=== PATIENT | male | born 1950 | race Caucasian/White ===

== ENCOUNTER 2019-08-30 18:14 | Observation (INO) | payer OTHER ==
[2019-08-30] MEDS ORDERED: Meropenem 0 MG/0 ML BAG ONE (18:55)
[2019-08-30] MEDS ORDERED: Meropenem 1 GM/100 ML BAG ONE (18:56)
[2019-08-30] MEDS ORDERED: NA CHLORIDE 0.9% 1,000 ML ONE (18:57)
[2019-08-30] MEDS ORDERED: CEFOXITIN/SWI 1gm 1 GM/10 ML SYR ONE (19:31)
[2019-08-30 19:40] LABS: Absolute Lymphocytes (CBC) 0.5 K/uL (0.7-4.9); Basophils % 0.3 % (0-1.3); Hematocrit 38.5 % (39.6-49.0); Lymphocytes % 6.1 % (15.3-44.8); MPV 7.8 fL (7.6-11.3); RBC Red Blood Cell Count 4.55 M/uL (4.33-5.43)
[2019-08-30 19:53] LABS: Potassium 3.8 mmol/L (3.5-5.1)
--- NOTE | 2019-08-30 20:17 | EDPHYS ---
Physician Documentation [facility] Name: Berny Mccormick Age: 68 yrs Sex: Male : 1950 Arrival Date: 08/30/2019 Time: 18:16 Bed 17 Private MD: ED Physician HPI: 08/30 19:16 This 68 yrs old Male presents to ER via Ambulatory with complaints of Urinary jr8 Problem. 19:16 The patient presents with urinary symptoms, dysuria, urinary frequency. Onset: The jr8 symptoms/episode began/occurred gradually, 2 day(s) ago. Modifying factors: The symptoms are alleviated by nothing, the symptoms are aggravated by urinating. Associated signs and symptoms: The patient has no apparent associated signs or symptoms. Severity of symptoms: At their worst the symptoms were mild, in the emergency department the symptoms are unchanged. The patient has not experienced similar symptoms in the past. The patient has been recently seen by a physician:. Patient was seen by PCP for urinary symptoms and was started on cipro. Still without improvement. Culture was obtained and came back today. Cipro not sensitive. Patient stated that he has had mild low back pain and just overall does not feel well. No fevers, n/v/d, or abdominal pain. Historical: - Allergies: 18:34 No Known Allergies; ca1 - PMHx: 18:34 Hypertension; Depression; Thyroid problem; Hyperlipidemia; ca1 - PSHx: 18:34 None; ca1 - Immunization history:: Adult Immunizations up to date, Flu vaccine is not up to date. - Social history:: Smoking status: Patient/guardian denies using tobacco. - Ebola Screening: : Patient negative for fever greater than or equal to 101.5 degrees Fahrenheit, and additional compatible Ebola Virus Disease symptoms Patient denies exposure to infectious person Patient denies travel to an Ebola-affected area in the 21 days before illness onset No symptoms or risks identified at this time. ROS: 19:16 Eyes: Negative for injury, pain, redness, and discharge, ENT: Negative for injury, jr8 pain, and discharge, Neck: Negative for injury, pain, and swelling, Cardiovascular: Negative for chest pain, palpitations, and edema, Respiratory: Negative for shortness of breath, cough, wheezing, and pleuritic chest pain, Abdomen/GI: Negative for abdominal pain, nausea, vomiting, diarrhea, and constipation, MS/Extremity: Negative for injury and deformity, Skin: Negative for injury, rash, and discoloration, Neuro: Negative for headache, weakness, numbness, tingling, and seizure. 19:16 Back: Positive for pain at rest, Negative for pain with movement, radiated pain. 19:16 : Positive for urinary symptoms. Exam: 19:16 Eyes: Pupils equal round and reactive to light, extra-ocular motions intact. Lids and jr8 lashes normal. Conjunctiva and sclera are non-icteric and not injected. Cornea within normal limits. Periorbital areas with no swelling, redness, or edema. ENT: Nares patent. No nasal discharge, no septal abnormalities noted. Tympanic membranes are normal and external auditory canals are clear. Oropharynx with no redness, swelling, or masses, exudates, or evidence of obstruction, uvula midline. Mucous membranes moist. Neck: Trachea midline, no thyromegaly or masses palpated, and no cervical lymphadenopathy. Supple, full range of motion without nuchal rigidity, or vertebral point tenderness. No Meningismus. Cardiovascular: Regular rate and rhythm with a normal S1 and S2. No gallops, murmurs, or rubs. Normal PMI, no JVD. No pulse deficits. Respiratory: Lungs have equal breath sounds bilaterally, clear to auscultation and percussion. No rales, rhonchi or wheezes noted. No increased work of breathing, no retractions or nasal flaring. Abdomen/GI: Soft, non-tender, with normal bowel sounds. No distension or tympany. No guarding or rebound. No evidence of tenderness throughout. Back: No spinal tenderness. No costovertebral tenderness. Full range of motion. Skin: Warm, dry with normal turgor. Normal color with no rashes, no lesions, and no evidence of cellulitis. MS/ Extremity: Pulses equal, no cyanosis. Neurovascular intact. Full, normal range of motion. Neuro: Awake and alert, GCS 15, oriented to person, place, time, and situation. Cranial nerves II-XII grossly intact. Motor strength 5/5 in all extremities. Sensory grossly intact. Cerebellar exam normal. Normal gait. Vital Signs: 18:34 BP 119 / 89; Pulse 86; Resp 17 S; Temp 98.7(O); Pulse Ox 100% on R/A; Weight 92.99 kg ca1 (R); Height 6 ft. 2 in. (187.96 cm) (R); Pain 0/10; 20:40 BP 133 / 80; Pulse 78; Resp 16; Pulse Ox 100% on R/A; ak1 22:56 BP 128 / 86; Pulse 75; Resp 17; Temp 98.5; Pulse Ox 99% ; rr5 18:34 Body Mass Index 26.32 (92.99 kg, 187.96 cm) ca1 MDM: 18:43 Patient medically screened. jr8 20:14 Data reviewed: vital signs, nurses notes, lab test result(s), and as a result, I will jr8 discharge patient. Data interpreted: Pulse oximetry: on room air is 100 %. Interpretation: normal. Counseling: I had a detailed discussion with the patient and/or guardian regarding: the historical points, exam findings, and any diagnostic results supporting the discharge/admit diagnosis, lab results, the need for outpatient follow up, a family practitioner, to return to the emergency department if symptoms worsen or persist or if there are any questions or concerns that arise at home. Response to treatment: the patient's symptoms have markedly improved after treatment, patient is well hydrated. ED course: No emergent findings on labs or VS to suggest need for admission for UTI. Started patient on culture specific abx via IV here. Feeling better after IV hydration. Will continue culture specific PO abx at home. Return precautions given. 08/30 18:43 Order name: CBC with Diff; Complete Time: 20:41 [facility] 08/30 18:43 Order name: Basic Metabolic Panel; Complete Time: 19:55 [facility] 08/30 20:30 Order name: Manual Differential; Complete Time: 20:41 EDMS 08/30 23:14 Order name: Urinalysis EDMS 08/30 23:14 Order name: CBC with Automated Diff EDMS 08/30 23:14 Order name: CBC with Automated Diff EDMS 08/30 23:14 Order name: Comprehensive Metabolic Panel EDMS 08/30 23:14 Order name: Comprehensive Metabolic Panel EDMS 08/30 23:14 Order name: Magnesium EDMS 08/30 23:14 Order name: Magnesium EDMS 08/30 23:14 Order name: Phosphorus EDMS 08/30 23:14 Order name: Phosphorus EDMS 08/30 23:14 Order name: Urine Culture EDMS 08/30 18:43 Order name: IV; Complete Time: 19:32 [facility] 08/30 23:14 Order name: Regular [facility] Administered Medications: 19:40 Drug: Mefoxin 1 grams {Note: Administered IVP per pharmacy protocol.} Route: IVPB; jb4 Infused Over: 30 mins; Site: left antecubital; 20:38 Follow up: IV Status: Completed infusion ak1 19:41 Drug: NS 0.9% 1000 ml Route: IV; Rate: 1000 ml; Site: left antecubital; jb4 20:37 Follow up: IV Status: Completed infusion; IV Intake: 1000ml ak1 Disposition: 08/31 20:53 Co-signature as Attending Physician, Olu Salgado MD I agree with the assessment and kdr plan of care. Disposition: 08/30/19 22:16 Hospitalization ordered by Oliverio Hart for Inpatient Admission. Preliminary diagnosis are Extended spectrum beta lactamase (ESBL) resistance, Acute cystitis. - Bed requested for Telemetry/MedSurg (Inpatient). - Status is Inpatient Admission. rr5 - Condition is Stable. - Problem is new. - Symptoms are unchanged. UTI on Admission? Yes Signatures: Dispatcher [employer] [facility] Olu Salgado MD MD kdr Roszak, Josh, PA PA jr8 Felicita Magaña RN RN tl1 Wallace Rothman RN RN jb4 Betito Lopez RN RN rr5 Elizabeth Barragan RN RN ca1 Vandana Ching RN ak1 Corrections: (The following items were deleted from the chart) 08/30 20:30 19:49 CBC Smear Scan ordered. [facility] 20:45 20:16 08/30/2019 20:16 Discharged to Home. Impression: Acute cystitis. Condition is ca1 Stable. Forms are Medication Reconciliation Form, Thank You Letter, Antibiotic Education, Prescription Opioid Use. Follow up: Private Physician; When: 1 week; Reason: Recheck today's complaints, Continuance of care, Re-evaluation by your physician. Problem is new. Symptoms have improved. [facility] 22:15 20:45 08/30/2019 20:16 Discharged to Home. Impression: Acute cystitis. Condition is jr8 Stable. Discharge Instructions: Urinary Tract Infection, Adult. Prescriptions for Augmentin 875-125 mg Oral Tablet - take 1 tablet by ORAL route every 12 hours for 10 days; 20 tablet. and Forms are Medication Reconciliation Form, Thank You Letter, Antibiotic Education, Prescription Opioid Use. Follow up: Private Physician; When: 1 week; Reason: Recheck today's complaints, Continuance of care, Re-evaluation by your physician. Problem is new. Symptoms have improved. ca1 23:27 22:16 Hospitalization Ordered by Oliverio Hart MD for Inpatient Admission. Preliminary tl1 diagnosis is Extended spectrum beta lactamase (ESBL) resistance; Acute cystitis. Bed requested for Telemetry/MedSurg (Inpatient). Status is Inpatient Admission. Condition is Stable. Problem is new. Symptoms are unchanged. UTI on Admission? Yes. jr8 08/31 00:04 08/30 23:27 08/30/2019 22:16 Hospitalization Ordered by Oliverio Hart MD for Inpatient rr5 Admission. Preliminary diagnosis is Extended spectrum beta lactamase (ESBL) resistance; Acute cystitis. Bed requested for Telemetry/MedSurg (Inpatient). Status is Inpatient Admission. Condition is Stable. Problem is new. Symptoms are unchanged. UTI on Admission? Yes. tl1
--- NOTE | 2019-08-30 20:17 | ER ---
Nurse's Notes [facility] Name: Berny Mccormick Age: 68 yrs Sex: Male : 1950 Arrival Date: 08/30/2019 Time: 18:16 Bed 17 Private MD: Diagnosis: Extended spectrum beta lactamase (ESBL) resistance;Acute cystitis Presentation: 08/30 18:30 Presenting complaint: Patient states: "I have a UTI that is antibiotic resistant. Dr. lisa Alfaro told me to come to the ER for IV antibiotics after he got and read me the culture results". Transition of care: patient was not received from another setting of care. Onset of symptoms was August 30, 2019. Risk Assessment: Do you want to hurt yourself or someone else? Patient reports no desire to harm self or others. Initial Sepsis Screen: Does the patient meet any 2 criteria? No. Patient's initial sepsis screen is negative. Does the patient have a suspected source of infection? No. Patient's initial sepsis screen is negative. Care prior to arrival: None. 18:30 Method Of Arrival: Ambulatory ca1 18:30 Acuity: ARIN 3 ca1 Triage Assessment: 18:34 General: Appears in no apparent distress. comfortable, Behavior is calm, cooperative, ca1 appropriate for age. Pain: Denies pain. Historical: - Allergies: 18:34 No Known Allergies; ca1 - PMHx: 18:34 Hypertension; Depression; Thyroid problem; Hyperlipidemia; ca1 - PSHx: 18:34 None; ca1 - Immunization history:: Adult Immunizations up to date, Flu vaccine is not up to date. - Social history:: Smoking status: Patient/guardian denies using tobacco. - Ebola Screening: : Patient negative for fever greater than or equal to 101.5 degrees Fahrenheit, and additional compatible Ebola Virus Disease symptoms Patient denies exposure to infectious person Patient denies travel to an Ebola-affected area in the 21 days before illness onset No symptoms or risks identified at this time. Screenin:37 Abuse screen: Denies threats or abuse. Denies injuries from another. Nutritional ak1 screening: No deficits noted. Tuberculosis screening: No symptoms or risk factors identified. Fall Risk None identified. Assessment: 22:50 General: Appears in no apparent distress. comfortable, Behavior is calm, cooperative, rr5 appropriate for age, came back for admission. awaiting for room assignment.. Pain: Denies pain. Neuro: Level of Consciousness is awake, alert, obeys commands, Oriented to person, place, time, situation, Appropriate for age. Cardiovascular: Capillary refill < 3 seconds Patient's skin is warm and dry. Respiratory: Airway is patent Respiratory effort is even, unlabored, Respiratory pattern is regular, symmetrical. 23:36 Reassessment: Patient appears in no apparent distress at this time. report called to ak1 Cindy BRUCE. Vital Signs: 18:34 BP 119 / 89; Pulse 86; Resp 17 S; Temp 98.7(O); Pulse Ox 100% on R/A; Weight 92.99 kg ca1 (R); Height 6 ft. 2 in. (187.96 cm) (R); Pain 0/10; 20:40 BP 133 / 80; Pulse 78; Resp 16; Pulse Ox 100% on R/A; ak1 22:56 BP 128 / 86; Pulse 75; Resp 17; Temp 98.5; Pulse Ox 99% ; rr5 18:34 Body Mass Index 26.32 (92.99 kg, 187.96 cm) ca1 ED Course: 18:16 Patient arrived in ED. as 18:32 Triage completed. ca1 18:34 Arm band placed on right wrist. ca1 18:37 Rubens Marcelo PA is [facility]. jr8 18:37 Olu Salgado MD is Attending Physician. jr8 19:16 Wallace Rothman, RN is Primary Nurse. jb4 19:25 Inserted saline lock: 20 gauge in left antecubital area, using aseptic technique. Blood ds4 collected. Missed attempt(s): 20 gauge in right antecubital area. Bleeding controlled, band aid applied, catheter tip intact. 19:32 Basic Metabolic Panel Sent. ds4 19:32 CBC with Diff Sent. ds4 20:37 Patient has correct armband on for positive identification. Placed in gown. Bed in low ak1 position. Call light in reach. Side rails up X 1. Pulse ox on. NIBP on. 20:38 No provider procedures requiring assistance completed. IV discontinued, intact, ak1 bleeding controlled, No redness/swelling at site. 22:09 Attending Physician role handed off by Olu Salgado MD ak1 22:09 Primary Nurse role handed off by Wallace Rothman, RN ak1 22:15 Oliverio Hart MD is Hospitalizing Provider. jr8 22:50 Betito Lopez, RN is Primary Nurse. rr5 22:56 Inserted saline lock: 20 gauge in right hand, using aseptic technique. rr5 Administered Medications: 19:40 Drug: Mefoxin 1 grams {Note: Administered IVP per pharmacy protocol.} Route: IVPB; jb4 Infused Over: 30 mins; Site: left antecubital; 20:38 Follow up: IV Status: Completed infusion ak1 19:41 Drug: NS 0.9% 1000 ml Route: IV; Rate: 1000 ml; Site: left antecubital; jb4 20:37 Follow up: IV Status: Completed infusion; IV Intake: 1000ml ak1 Intake: 20:37 IV: 1000ml; Total: 1000ml. ak1 Outcome: 20:16 Discharge ordered by . jr8 20:38 Discharged to home ambulatory, with family, pt calling his to pick him up ak1 20:38 Condition: good 20:38 Discharge instructions given to patient, Instructed on discharge instructions, follow up and referral plans. no drinking with medication, no driving heavy equipment, medication usage, Demonstrated understanding of instructions, follow-up care, medications, Prescriptions given X 1. 20:45 Patient left the ED. ca1 22:16 Decision to Hospitalize by Provider. jr8 08/31 00:04 Patient left the ED. rr5 Signatures: Laura Nevarez Josh, PA PA jr8 Chicho Patrick4 Vandana Ching RN RN ak1 Wallace Rothman RN RN jb4 Betito Lopez, RN RN rr5 Elizabeth Barragan RN RN ca1
[2019-08-30 20:30] LABS: Blood Morphology Comment NOT SEEN (NOT SEEN); Platelet Estimate ADEQ
[2019-08-30] MEDS ORDERED: ONDANSETRON 4 MG/2 ML VIAL IV PRN (23:10)
[2019-08-30] MEDS ORDERED: ALPRAZOLAM 0.25 MG TABLET PO PRN (23:10)
[2019-08-30] MEDS ORDERED: NA CHLORIDE 0.9% 1,000 ML IV SCH (23:45)
[2019-08-31] MEDS ORDERED: Meropenem 500 MG/100 ML BAG ONE (02:41)
[2019-08-31 02:47] LABS: Urine Appearance CLEAR; Urine Bilirubin NEGATIVE (NEG); Urine Blood NEGATIVE (NEG); Urine Color YELLOW; Urine Glucose NEGATIVE (NEG); Urine Protein NEGATIVE (NEG); Urine Specific Gravity <=1.005 (1.005-1.030); Urine Urobilinogen 0.2 mg/dL (0.2-1.0); Urine pH 7.5 (5.0-7.0)
[2019-08-31 03:05] VITALS: O2SAT 97; BMI 26.3
[2019-08-31 03:24] LABS: Urine Microscopic Reflex ORDER UMIC
[2019-08-31 03:42] LABS: Urine Bacteria <20 /HPF (NONE SEEN); Urine Culture Reflex Order NOT NEEDED; Urine RBC <5 /HPF (NONE SEEN)
[2019-08-31 03:43] LABS: Urine Mucus 1+ /HPF (NONE SEEN)
[2019-08-31 05:14] LABS: Absolute Lymphocytes (CBC) 0.4 K/uL (0.7-4.9); Basophils % 0.3 % (0-1.3); Hematocrit 36.8 % (39.6-49.0); MPV 8.1 fL (7.6-11.3); RBC Red Blood Cell Count 4.36 M/uL (4.33-5.43)
[2019-08-31 05:16] LABS: Albumin 2.9 g/dL (3.4-5.0); Bilirubin Total 0.6 mg/dL (0.2-1.0); Magnesium 2.1 mg/dL (1.8-2.4); Phosphorus 1.9 mg/dL (2.5-4.9); Potassium 3.9 mmol/L (3.5-5.1); Protein, Total 5.9 g/dL (6.4-8.2)
[2019-08-31] MEDS ORDERED: POTASS/SODIUM PHOSPHATE 1 PKT POWD.PACK PO SCH (06:00)
[2019-08-31] MEDS: POTASS/SODIUM PHOSPHATE 1 PKT POWD.PACK PO SCH ×3 (06:30→09:56)
[2019-08-31] MEDS: ACETAMINOPHEN 500 MG TAB PO PRN ×2 (06:31→12:56)
[2019-08-31] MEDS ORDERED: POTASSIUM CL SA 10 MEQ TAB PO ONE (07:00)
--- NOTE | 2019-08-31 08:51 | P.HP ---
Certification for Inpatient Patient admitted to: Observation With expected LOS: <2 Midnights Patient will require the following post-hospital care: None Practitioner: I am a practitioner with admitting privileges, knowledge of patient current condition, hospital course, and medical plan of care. Services: Services provided to patient in accordance with Admission requirements found in Title 42 Section 412.3 of the Code of Federal Regulations Patient History Date of Service: 08/30/19 Reason for admission: Multi-drug resistant urinary tract infection History of Present Illness: Patient is a 68-year-old gentleman who came to the hospital with urinary tract infection. Patient had a ESBL E coli which grew out in the outpatient setting. Patient was sent to our hospital for further evaluation. Spoke to patient's PCP who wanted patient started on meropenem. Will continue meropenem for 24 hr. Then will switch patient to oral antibiotics. Patient's PCP has recommended Bactrim(already has it at home) and, we will add nitrofurantoin to that regimen. Anticipate discharge home in 24 hr. Allergies No Known Allergies Allergy (Verified 08/31/19 01:40) Home Medications: Aspirin 81 mg PO DAILY 08/31/19 Bupropion HCl [Wellbutrin Xl] 300 mg PO DAILY 08/31/19 Duloxetine HCl 60 mg PO DAILY 08/31/19 Levothyroxine Sodium [Levoxyl] 137 mcg PO [id number] 08/31/19 Linaclotide [Linzess] 290 mcg PO DAILY 08/31/19 Lurasidone HCl [Latuda] 20 mg PO DAILY 08/31/19 lisinopriL [Lisinopril] 5 mg PO DAILY 08/31/19 - Past Medical/Surgical History Has patient received pneumonia vaccine in the past: No Diabetic: No -: HTN -: depression -: thyroid issue -: HLD Past Surgical History: Patient denies surgical history - Family History Father Family History: Reviewed- Non-Contributory - Social History Smoking Status: Never smoker Alcohol use: No CD- Drugs: No Caffeine use: Yes Place of Residence: Home Review of Systems 10-point ROS is otherwise unremarkable Physical Examination - Vital Signs Temperature: 99.7 F Blood Pressure: 128/69 Pulse: 72 Respirations: 20 Pulse Ox (%): 97 - Physical Exam General: Alert, In no apparent distress, Oriented x3 HEENT: Atraumatic, PERRLA, Mucous membr. moist/pink, EOMI, Sclerae nonicteric Neck: Supple, 2+ carotid pulse no bruit, No LAD, Without JVD or thyroid abnormality Respiratory: Clear to auscultation bilaterally, Normal air movement Cardiovascular: Regular rate/rhythm, Normal S1 S2, No murmurs Gastrointestinal: Normal bowel sounds, Soft and benign, Non-distended, No tenderness, No rebound, No guarding Musculoskeletal: No clubbing, No swelling, No tenderness Integumentary: No rashes Neurological: Normal gait, Normal speech, Normal strength at 5/5 x4 extr, Normal tone, Sensation intact, Cranial nerves 3-12 intact, Normal affect Lymphatics: No axilla or inguinal lymphadenopathy - Studies Laboratory Data (last 24 hrs) 08/30/19 19:20: Sodium 130 L, Potassium 3.8, BUN 15, Creatinine 1.06, Glucose 94 08/30/19 19:20: WBC 8.7, Hgb 13.1 L, Hct 38.5 L, Plt Count 172 Assessment & Plan - Problems (Diagnosis) (1) Infection due to ESBL-producing Escherichia coli Current Visit: Yes Status: Acute (2) Hypertension Current Visit: Yes Status: Acute (3) Dyslipidemia Current Visit: Yes Status: Acute (4) Hypothyroidism Current Visit: Yes Status: Acute (5) Depression Current Visit: Yes Status: Acute - Plan Plan: 1. Continue with meropenem for 24 hr 2. Switched to Bactrim and nitrofurantoin in 24hrs. 3. Anticipate discharge home once antibiotics are completed 4. Strict blood pressure control 5. Monitor labs and make sure symptoms are stable 6. GI and DVT prophylaxis Discharge Plan: Home Plan to discharge in: 48 Hours - Advance Directives Does patient have a Living Will: No Does patient have a Durable POA for Healthcare: No - Code Status/Comfort Care Code Status Assessed: Yes Code Status: Full Code Critical Care: No Time Spent Managing PTS Care (In Minutes): 45
[2019-08-31 08:54] LABS: Blood Morphology Comment NOT SEEN (NOT SEEN); Platelet Estimate ADEQ
[2019-08-31] MEDS ORDERED: HOME MED 1 EA UNK (Linaclotide [Linzess] 290 MCG) PO SCH (09:00)
[2019-08-31] MEDS ORDERED: BUPROPION HCL XL 150 MG TAB PO SCH (09:00)
[2019-08-31] MEDS ORDERED: ENOXAPARIN 40 MG/0.4 ML SQ SCH (09:00)
[2019-08-31] MEDS ORDERED: lisinopriL 5 MG TAB PO SCH (09:00)
[2019-08-31] MEDS ORDERED: DULOXETINE 30 MG CAP PO SCH (09:00)
[2019-08-31] MEDS ORDERED: ASPIRIN 81 MG CHEWABLE TABLET PO SCH (09:00)
[2019-08-31] MEDS ORDERED: Meropenem 500 MG VIAL IV SCH (09:00)
[2019-08-31] MEDS ORDERED: LURASIDONE HCL 20 MG PO SCH (09:00)
[2019-08-31] MEDS ORDERED: INFLUENZA VACCINE (for 3y+) 0.5 ML DOSE IMVAC ONE (09:00)
[2019-08-31] MEDS: Meropenem 500 MG in NA CHLORIDE 0.9% 100 ML IV SCH ×2 (09:49→18:42)
--- NOTE | 2019-08-31 11:35 | P.DS ---
Admission Date: 08/30/19 Discharge Date: 08/31/19 Primary Care Provider: Dr. Alfaro Disposition: DC HOME/HOME HEALTH CARE Discharge Condition: GOOD Reason for Admission: Multi-drug resistant urinary tract infection Consultations: none Procedures: Medical problem list: UTI, urine culture positive for E coli-ESBL Hypothyroidism Depression with anxiety Hypertension Chronic constipation Brief History of Present Illness: 68-year-old male presented to the emergency room after he was sent by his PCP to start IV antibiotic therapy for UTI. Patient had recent symptoms. Urine culture positive for coli-ESBL. Hospital Course: Patient found to have UTI, urine culture positive for E coli-ESBL. This requires IV antibiotic treatment for 7 days. PICC line ordered. Home antibiotics will be arranged so that the patient can continue with IV meropenem 1 g IV twice daily for 7 days. Recommend to recheck urine culture after that time to monitor resolution. If negative PCP can discontinue PICC line and treatment. UTI prevention provided. Recommend follow up with PCP within 7 days. Patient with hypothyroidism. This has remained stable. Patient will continue with his medication levothyroxine 137 mcg daily.. Patient with depression and anxiety. This has remained stable. Patient will continue with his medications-Bupropion XL 300 mg daily, Cymbalta 60 mg daily, and Latuda 20 mg daily. Patient with hypertension. This has remained stable. At discharge he will continue with lisinopril 5 mg daily. Patient with chronic constipation. Patient will continue with Linzess 290 mcg daily. Vital Signs/Physical Exam: Temp Pulse Resp BP Pulse Ox 99.7 F 72 20 128/69 97 08/31/19 08:52 08/31/19 08:52 08/31/19 08:52 08/31/19 08:52 08/31/19 08:52 General: Alert, In no apparent distress, Oriented x3, Cooperative HEENT: Atraumatic Neck: Supple Respiratory: Clear to auscultation bilaterally, Normal air movement Cardiovascular: Normal pulses, Regular rate/rhythm Gastrointestinal: Normal bowel sounds, Soft and benign, Non-distended, No tenderness, No masses, No rebound, No guarding Neurological: Normal speech, Normal strength at 5/5 x4 extr, Normal tone Laboratory Data at Discharge: WBC 5.5 K/uL (4.3-10.9) D 08/31/19 04:21 Hgb 12.5 g/dL (13.6-17.9) L 08/31/19 04:21 Hct 36.8 % (39.6-49.0) L 08/31/19 04:21 Plt Count 140 K/uL (152-406) L 08/31/19 04:21 Sodium 133 mmol/L (136-145) L 08/31/19 04:21 Potassium 3.9 mmol/L (3.5-5.1) 08/31/19 04:21 BUN 14 mg/dL (7-18) 08/31/19 04:21 Creatinine 0.97 mg/dL (0.55-1.3) 08/31/19 04:21 Glucose 124 mg/dL (74-106) H 08/31/19 04:21 Phosphorus 1.9 mg/dL (2.5-4.9) L 08/31/19 04:21 Magnesium 2.1 mg/dL (1.8-2.4) 08/31/19 04:21 Total Bilirubin 0.6 mg/dL (0.2-1.0) 08/31/19 04:21 AST 18 U/L (15-37) 08/31/19 04:21 ALT 24 U/L (12-78) 08/31/19 04:21 Alkaline Phosphatase 56 U/L (45-117) 08/31/19 04:21 Home Medications: Aspirin 81 mg PO DAILY 08/31/19 Bupropion HCl [Wellbutrin Xl] 300 mg PO DAILY 08/31/19 Duloxetine HCl 60 mg PO DAILY 08/31/19 Levothyroxine Sodium [Levoxyl] 137 mcg PO [id number] 08/31/19 Linaclotide [Linzess] 290 mcg PO DAILY 08/31/19 Lurasidone HCl [Latuda] 20 mg PO DAILY 08/31/19 lisinopriL [Lisinopril] 5 mg PO DAILY 08/31/19 Patient Discharge Instructions: 1. Recommend follow up with PCP within 1 week to follow up this hospitalization. 2. Patient found to have UTI, urine culture positive for E coli-ESBL. This requires IV antibiotic treatment for 7 days. PICC line ordered. Home antibiotics will be arranged so that the patient can continue with IV meropenem 1 g IV twice daily for 7 days. Recommend to recheck urine culture after that time to monitor resolution. If negative PCP can discontinue PICC line and treatment. UTI prevention provided. Recommend follow up with PCP within 7 days. 3. Patient with hypothyroidism. This has remained stable. Patient will continue with his medication levothyroxine 137 mcg daily.. 4. Patient with depression and anxiety. This has remained stable. Patient will continue with his medications-Bupropion XL 300 mg daily, Cymbalta 60 mg daily, and Latuda 20 mg daily. 5. Patient with hypertension. This has remained stable. At discharge he will continue with lisinopril 5 mg daily. 6. Patient with chronic constipation. Patient will continue with Linzess 290 mcg daily. Diet: AHA Activity: Ad leny Time spent managing pt's care (in minutes): 55
--- NOTE | 2019-08-31 18:33 | RAD REPORT ---
EXAM DESCRIPTION: RAD - Chest Single View - 08/31/2019 6:16 pm CLINICAL HISTORY: Picc line placement COMPARISON: No comparisons FINDINGS: Portable chest was obtained following placement of a right upper extremity PICC line. The catheter tip projects over the SVC near the right atrium junction.
[2019-08-31 20:57] VITALS: BP 156/82; TEMP 98.1
[2019-09-01] MEDS ORDERED: LEVOTHYROXINE SOD 0.075 MG TAB PO SCH (06:00)
[2019-09-01] MEDS ORDERED: LEVOTHYROXINE SOD 0.025 MG TAB PO SCH (06:30)
[2019-09-01] MEDS ORDERED: LEVOTHYROXINE SOD 0.112 MG TAB PO SCH (06:30)
== END 2019-08-31 20:43 | disposition home health service (06) ==
LOC: ER 18:14 → ERHOLD 23:11 → 2ND 23:40
PROVIDERS: ADMIT Hospitalist; ATTEND Hospitalist
DX: N39.0 Urinary tract infection, site not specified (principal); B96.20 Unspecified Escherichia coli [E. coli] as the cause of diseases classified elsewhere; Z16.12 Extended spectrum beta lactamase (ESBL) resistance; E03.9 Hypothyroidism, unspecified; F41.8 Other specified anxiety disorders; I10 Essential (primary) hypertension; K59.00 Constipation, unspecified; E78.5 Hyperlipidemia, unspecified; Z23 Encounter for immunization; Z79.82 Long term (current) use of aspirin
CPT/HCPCS: 96365; 85025 ×2; 87086; 80048; 36415; 83735; 84100; 80053; 71045; 90471; 99284; Q2035; J1650; J2185 ×2; J7030 ×2; G0378 ×2; 81003; 81015; 87088

== ENCOUNTER 2022-05-24 11:49 | Observation (INO) | payer OTHER ==
--- OUTSIDE RECORDS SUMMARY | 2022-05-24 11:52 | XMS REPORT | Continuity of Care Document ---
:1950 Author Organization [facility] t Address [address] [place] [address] Care Team Providers Name Role Phone PCP, PATIENT DOES NOT HAVE A Primary Care Physician UnavailAnh Simms Attending Clinician ANH MORALES Attending Clinician Unavailable Renetta Keith Attending Clinician Unavailable Jerson Alfaro Admitting Clinician Unavailable Payers Payer Name Policy Type Policy Number Effective Date Expiration Date S ource Problems Condition Condition Condition Status Onset Resolution Last Treating Co mments Source Name Details Category Date Date Treatment Clinician Date No known No known Disease Unive rs active active ity of problems problems [facility] Allergies, Adverse Reactions, Alerts Allergy Allergy Status Severity Reaction(s) Onset Inactive Treating Comm ents Source Name Type Date Date Clinician No Known DA Active U 2020-09 [facility]18 [place] [facility] No Known DA Active U 2020-09 [facility] Allergie 0-18 [place] [facility] NO KNOWN Drug Active Univers ALLERGIE Class ity of S [facility] Social History Social Habit Start Date Stop Date Quantity Comments Source Alcohol intake 2022-01-07 2022-01-07 Current drinker Unive rsity of 00:00:00 00:00:00 of alcohol [facility] Tobacco use and 2020-07-22 2020-07-22 Never used Universit y of exposure 00:00:00 00:00:00 [facility] Sex Ass[birth year] Universit y of 00:00:00 00:00:00 [facility] Smoking Status Start Date Stop Date Source Never smoker [facility] Medications Ordered Filled Start Stop Current Ordering Indication Dosage Frequency Signature Comments Components Source Medication Medication Date Date Medication? Clinician (SIG) Name Name cephALEXin 2020-09 Yes [id number] 500mg Take 1 Univers (KEFLEX) 2-06 capsule by ity o f 500 mg 00:00: mouth 2 [place] capsule 00 (two) Medical times Branch daily. buPROPion 2019- Yes Univers XL 300 mg 8-26 ity of 24 hr 00:00: [place] tablet 00 [facility] LATUDA 20 2019-0 Yes Univers mg tablet 8-26 ity of 00:00: [address] DULoxetine 2020-0 Yes Univers 60 mg 8-26 ity of capsule 00:00: [address] lisinopriL 2019-0 Yes Univers 5 mg tablet 8-08 ity of 00:00: [address] simvastatin 2020-0 Yes Univer s 10 mg 8-08 ity of tablet 00:00: [address] Immunizations Ordered Filled Immunization Date Status Comments Sour e Immunization Name Name SARS-COV-2 COVID-19 2020-11-16 Completed Unive rsity of MODERNA VACCINE 00:00:00 [facility] SARS-COV-2 COVID-19 2020-10-19 Completed Unive rsity of MODERNA VACCINE 00:00:00 [facility] Vital Signs Vital Name Observation Time Observation Value Comments Source Systolic blood 2022-01-07 16:15:00 91 mm[Hg] Univer sity of pressure [facility] Diastolic blood 2022-01-07 16:15:00 75 mm[Hg] Unive rsity of pressure [facility] Heart rate 2022-01-07 16:15:00 85 /min [facility] Body temperature 2022-01-07 16:15:00 36.39 [facility] Respiratory rate 2022-01-07 16:15:00 16 /min [facility] Body weight 2022-01-07 16:15:00 102.513 kg [facility] BMI 2022-01-07 16:15:00 29.82 kg/m2 [facility] Oxygen saturation in 2022-01-07 16:15:00 99 /min [facility] blood by [facility] [place] [facility] Pulse oximetry Branch Procedures Procedure Date / Time Performed Performing Clinician Sourc e POCT URINALYSIS AUTO 2022-01-07 16:18:00 [facility] Start End Encounter Admission Attending Care Care Encounter Source Date/Time Date/Time Type Type Clinicians Facility Department ID 2022-01-07 2022-01-07 Office Monica [facility] [id number] [facility] 11:00:00 11:34:19 Visit Anh MANN [id number] [facility] [id number] Pratik sage PROFESSIO [id number] Co dical NAL [address] [place] [address] 2022-01-07 2022-01-07 Outpatient R MONICA ARDIVYA [facility] [id number] [facility] 11:00:00 11:34:19 ANH spann f [facility] 2021-06-30 2021-06-30 Inpatient Renetta Hayward [facility] RADI [id number] [facility] 13:00:00 12:20:00 12 [place] [facility] 2021-06-23 2021-06-23 Outpatient Renetta Hayward [facility] RADI Y00 [id number] [facility] 10:30:00 10:30:[address] [place] [address] Orthop dic Hospita l Results Test Description Test Time Test Comments Results Result Comments Source POCT URINALYSIS, INSTRUMENT 2022-01-07 16:19:00 Test Item Value Reference Range Interpretation Comme nts POCT U SP GRAV (test code = 3255) 1.015 mg/dl 1.005-1.025 POCT PH U (test code = 3254) 7.0 mg/dl 5-8 POCT U LEUK EST (test code = 3263) Large Negative - Negative POCT U NIT (test code = 3262) Positive Negative - Negative POCT U PROT (test code = 3259) Negative Negative - Negative POCT U GLU (test code = 3256) Negative Negative - Negative POCT U KETONE (test code = 3258) Negative Negative - Negative POCT U UROBILI (test code = 3260) 0.2 mg/dl 0.2-1 POCT U BILI (test code = 3261) Negative Negative - Negative POCT U BLD (test code = 3257) Trace-intact Negative - Negative POCT U COLOR (test code = 3266) Yellow POCT U APPEAR (test code = 3267) Slightly CLoudy Lab Interpretation (test code = 59114-5) Abnormal [facility]- MRI LW JNT W/CONTRAST [id number] 19:50:00 [facility] : 1950 Sex: M Patient Name: ESTHER MCGINNIS Unit No: [id number] EXAMS: CPT CODE: [id number] MRI LW JNT W/[place] [address] TECHNIQUE: Multiplanar multisequence images of the left were obtained with and without IV contrast. COMPARISON STUDY: MR dated 06/23/2021 FINDINGS: Diffuse synovial enhancement and thickening are demonstrated. No enhancing mass is identified. A knee joint effusion is again present without significant internal enhancement. Debris is also noted within the joint, nonenhancing. No suspicious enhancing osseous lesion. Bucket-handle tear of the lateral meniscus is again demonstrated. Severe lateral compartment cartilage loss is again noted. No other significant interval change compared to prior exam. IMPRESSION: 1. Findings most compatible with knee synovitis. No suspicious enhancementvisualized. 2. Bucket-handle tear and additional findings as described on recent MRI. at 1951 Reported and signed by: Eyal Chester M.D. CC: Renetta Keith MD; Jerson Alfaro MD Technologist: Lizy Abdalla, RT(R) Transcribed D/ (1950) Jeff/Jeff [facility] NAME: ESTHER MCGINNIS [address] [facility] PHYS: PAT Breana Keithraji Ibarra : 1950 AGE: 70 SEX: M [place] [address] LOC: Y.MRI PHONE #: [phone] EXAM DATE: 06/30/2021 STATUS: DEP CLI FAX #: [phone] RAD #: D/C DT PAGE 1 Signed Report Patient Name: ESTHER MCGINNIS Unit No: [id number] EXAMS: CPT CODE: [id number] [place] LW JNT W/[place] [address] () Orig Print D/T: S: 07/02/2021 (1952) [facility] NAME: ESTHER MCGINNIS [address] [facility] PHYS: PATAN.Shahzad SagarRenetta Ibarra : 1950 AGE: 70 SEX: M [place] [address] LOC: Y.MRI PHONE #: [phone] EXAM DATE: 06/30/2021 STATUS: DEP CLI FAX #: [phone] RAD #: D/CDT PAGE 2 Signed Report- MRI LW JNT W/O CONT [id number] 11:19:00 [facility] : 1950 Sex: M Patient Name: ESTHER MCGINNIS Unit No: [id number] EXAMS: CPT CODE: [id number] MRI LW JNT W/[place] [address] MRI OF THE LEFT KNEE DIAGNOSIS: 1. Heterogeneous predominantly intermediate to low signal with small focal areas of increased signal on all pulse sequences. This is indeterminate and most consistent with synovitis however examination with IV contrast is recommended in further evaluation. 2. Bucket-handle tear of the lateral meniscus.. 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 3. Sprain of the anterior cruciate ligament without definite tearing. 4. Mild sprain of the medial collateral ligament proximally with overlying edema. No tear is seen. COMMENT: COMPARISON: No prior exams available. Scans were performed in the sagittal, axial and coronal planes utilizing T1, spin density with fat saturation and T2-weighted pulse sequences. Bony and hyaline cartilage abnormalities are seen diffusely. The lateral meniscus is torn. The anterior cruciate and medial collateral ligaments are abnormal as noted. Signal and configuration. No abnormality is seen in the posterior cruciate or lateral collateral ligaments. There is a small amount of free fluid in the joint and abnormal signal diffusely with distention of the joint as described above. The quadriceps and patellar tendons are intact. at 1119 Reported and signed by: Krzysztof Mendoza MD CC: Renetta Keith MD Technologist: Wayne Andrade(R) Transcribed D/ (1119) t.SUR.L [facility] NAME: ESTHER MCGINNIS [address] [facility] PHYS: PATAN.06 - Renetta Keith : 1950 AGE: 70 SEX: M [place], [place] [address] LOC: Y.MRI PHONE #: [phone] EXAM DATE: 06/23/2021 STATUS: REG CLI FAX #: [phone] RAD #: D/C DT PAGE 1 Signed Report Patient Name: ESTHER MCGINNIS Unit No: [id number] EXAMS: CPT CODE: [id number] MRI LW JNT W/[place] [address] (Continued) Orig Print D/T: S: 06/23/2021 (1122) [place] [facility] NAME: ESTHER MCGINNIS [address] [facility] PHYS: TAYLA.06 - Renetta Keith : 1950 AGE: 70 SEX: M [place], [place] [address] LOC: Y.MRI PHONE #: [phone] EXAM DATE: 06/23/2021 STATUS: REG CLI FAX #: [phone] RAD #: D/C DT PAGE 2 Signed Report
[2022-05-24 12:46] LABS: Absolute Lymphocytes (CBC) 0.9 K/uL (0.7-4.9); Hematocrit 38.3 % (39.6-49.0); Lymphocytes % 10.9 % (15.3-44.8); MCV 79.1 fL (80-100); MPV 7.5 fL (7.6-11.3); RBC Red Blood Cell Count 4.84 M/uL (4.33-5.43)
[2022-05-24 12:51] LABS: Protime INR 1.1
[2022-05-24 13:07] LABS: ALT/SGPT 28 U/L (12-78); AST/SGOT 17 U/L (15-37); Albumin 4.1 g/dL (3.4-5.0); Alkaline Phosphatase 58 U/L (45-117); BUN Blood Urea Nitrogen 21 mg/dL (7-18); Bicarbonate 22 mmol/L (21-32); Bilirubin Direct 0.2 mg/dL (0-0.2); Bilirubin Total 0.6 mg/dL (0.2-1.0); Glomerular Filtration Rate 49 ml/min (=/>90); Glucose Level 97 mg/dL (74-106); Lipase 63 U/L (73-393); Magnesium 2.6 mg/dL (1.8-2.4); Potassium 4.5 mmol/L (3.5-5.1); Protein, Total 7.4 g/dL (6.4-8.2); Sodium Level 129 mmol/L (136-145); Troponin High Sensitivity 7.5 pg/mL (<58.9)
[2022-05-24 13:14] LABS: SARS-CoV-2 Antigen Rapid Res Negative (Negative)
--- NOTE | 2022-05-24 13:14 | RAD REPORT ---
EXAM DESCRIPTION: CT - Head Brain Wo Cont - 05/24/2022 1:08 pm CLINICAL HISTORY: dizzy Headache, drowsiness COMPARISON: No comparisons TECHNIQUE: All CT scans are performed using dose optimization technique as appropriate and may inclu de automated exposure control or mA/KV adjustment according to patient size. FINDINGS: No intracranial hemorrhage, hydrocephalus or extra-axial fluid collection.There is signifi cant diminished density in the periventricular white matter.No areas of brain edema or evidence of mi dline shift. The paranasal sinuses and mastoids are clear. The calvarium is intact. IMPRESSION: No acute intracranial abnormality. Significant diminished density in the periventricular white matter probably is related to chronic marko rovascular ischemic changes.
--- NOTE | 2022-05-24 13:28 | ER ---
Nurse's Notes [facility] Name: Berny Mccormick Age: 71 yrs Sex: Male : 1950 Arrival Date: 05/24/2022 Time: 11:58 Bed 5 Private MD: Diagnosis: Dizziness and giddiness;Ataxic gait;Unspecified kidney failure-renal insufficency;Hypo-osmolality and hyponatremia Presentation: 05/24 12:09 Chief complaint: Patient states: Trouble walking for a few weeks, dizziness started at jl7 0630 this morning. Coronavirus screen: Vaccine status: Patient reports receiving the 2nd dose of the covid vaccine. At this time, the client does not indicate any symptoms associated with coronavirus-19. Ebola Screen: No symptoms or risks identified at this time. No acute neurological deficit is noted. The patients blood glucose was checked before arriving to the hospital and was found to be normal. Initial Sepsis Screen: Does the patient meet any 2 criteria? No. Patient's initial sepsis screen is negative. Does the patient have a suspected source of infection? No. Patient's initial sepsis screen is negative. Risk Assessment: Do you want to hurt yourself or someone else? Patient reports no desire to harm self or others. Onset of symptoms was May 14, 2022. 12:09 Method Of Arrival: Wheelchair [facility] 12:09 Acuity: ARIN 3 jl7 Triage Assessment: 12:11 The onset of the patients symptoms was May 24, 2022 at 06:30. General: Appears in jl7 no apparent distress. uncomfortable, Behavior is calm, cooperative, appropriate for age. Pain: Denies pain. Neuro: Reports dizziness. Stroke Activation: Symptom onset > 6 hours Physician: Stroke Attending; Name: ; Notified At: ; Arrived At: Physician: Chief Stroke Resident; Name: ; Notified At: ; Arrived At: Physician: Stroke Resident; Name: ; Notified At: ; Arrived At: Physician: ED Attending; Name: ; Notified At: ; Arrived At: Physician: ED Resident; Name: ; Notified At: ; Arrived At: Historical: - Allergies: 12:11 No Known Allergies; jl7 - PMHx: 12:11 Depression; Hyperlipidemia; Hypertension; Thyroid problem; Diabetes mellitus; jl7 - Immunization history:: Adult Immunizations up to date. - Social history:: Smoking status: Patient denies any tobacco usage or history of. - Family history:: not pertinent. Screenin:00 Abuse screen: Denies threats or abuse. Denies injuries from another. jh6 12:00 Nutritional screening: No deficits noted. Tuberculosis screening: No symptoms or risk jh6 factors identified. Fall Risk Gait- Impaired (20 pts.). Assessment: 12:00 VAN Scoring: Arm Drift: Patients demonstrates NO arm weakness. Patient is VAN Negative. jh6 The patient is alert, and able to follow commands. The patient does not exhibit slurred or garbled speech. The patient is not exhibiting difficulty speaking. The patient does not exhibit difficulty understanding words. The patient is able to swallow own secretions with no drooling or need for suction. Patient tolerated one teaspoon of water. No drooling, immediate coughing, gurgling, or clearing of the throat was noted. The patient tolerated 90mL of water. No drooling, immediate coughing, gurgling, or clearing of the throat was noted. The patient passed the bedside swallow screening. Oral medications may be given as ordered. Contact Physician for further diet orders. TNKase (Tenecteplase) Screening: Indications: Contraindications:. 12:00 General: Appears in no apparent distress. comfortable, Behavior is calm, cooperative. jh6 12:00 GI: Abd is soft and non tender X 4 quads. Reports nausea. jh6 12:00 Neuro: Level of Consciousness is awake, alert, obeys commands, Oriented to person, jh6 place, time, situation, Day Habilitation Supervisor are equal bilaterally Moves all extremities. Gait is steady, shuffling, Speech is normal, Facial symmetry appears normal, Pupils are PERRLA, Intact Reports dizziness, since off and on x 2 weeks. 13:00 Reassessment: Patient and/or family updated on plan of care and expected duration. Pain jh6 level reassessed. Patient is alert, oriented x 3, equal unlabored respirations, skin warm/dry/pink. 15:00 Reassessment: Patient is alert, oriented x 3, equal unlabored respirations, skin jh6 warm/dry/pink. Patient denies pain at this time. Patient states feeling better. 16:00 Reassessment: No changes from previously documented assessment. Patient and/or family jh6 updated on plan of care and expected duration. Pain level reassessed. 16:00 Pain: Pain currently is 0 out of 10 on a pain scale. 6 Vital Signs: 12:09 BP 146 / 90; Pulse 89; Resp 17; Temp 97.9; Pulse Ox 98% ; Weight 99.79 kg; Height 6 ft. jl7 2 in. (187.96 cm); Pain 0/10; 13:00 BP 135 / 74; Pulse 80; Resp 17; Pulse Ox 98% ; Pain 2/10; jh6 14:00 BP 136 / 76; Pulse 76; Resp 17; Pulse Ox 97% ; jh6 16:00 BP 136 / 74; Pulse 74; Resp 16; Pulse Ox 100% ; jh6 12:09 Body Mass Index 28.25 (99.79 kg, 187.96 cm) jl7 [facility] Score: 12:54 Eye Response: spontaneous(4). Verbal Response: oriented(5). Motor Response: obeys christine commands(6). Total: 15. NIH Stroke Scale Scores: 12:00 NIHSS Score: 0 [facility] 12:54 NIHSS Score: 0 [facility] ED Course: 11:58 Patient arrived in ED. rg4 12:01 Arm band placed on Patient placed in an exam room, on a stretcher. ll1 12:11 Triage completed. jl7 12:11 EKG done, by ED staff. dh3 12:15 Inserted saline lock: 20 gauge in left antecubital area, using aseptic technique. Blood dh3 collected. 12:28 Alex Flowers MD is Attending Physician. christine 13:08 Hailee Dailey, TEO is Primary Nurse. jh6 13:10 CT Head Brain wo Cont In Process Unspecified. EDMS 13:26 Oliverio Hart MD is Hospitalizing Provider. christine 13:34 US Carotid Artery Bilateral In Process Unspecified. EDMS 14:47 XRAY Chest (1 view) In Process Unspecified. EDMS Administered Medications: 04:00 Drug: NS 0.9% 1000 ml Route: IV; Rate: 1 bolus; Site: left antecubital; 6 14:00 Drug: Aspirin Chewable Tablet 162 mg Route: PO; 6 14:00 Drug: PlaVIX (clopidogrel) 75 mg Route: PO; 6 14:00 Drug: Thiamine 100 mg Route: IV; Rate: per protocol; Site: left antecubital; jh6 14:00 Drug: Pepcid (famotidine) 20 mg Route: IVP; Site: left antecubital; [facility] 14:00 Drug: Rocephin (cefTRIAXone) 1 grams Route: IV; Rate: per protocol; Site: [facility]; Outcome: 13:28 Decision to Hospitalize by Provider. christine 17:29 Patient left the ED. NIH Stroke Scale - NIH Stroke Score Date: 05/24/2022 Time: 12:00 Total Score = 0 1a. Level of Consciousness (LOC) - 0(Alert) 1b. Level of Consciousness (LOC) (Month \T\ Age) - 0(Both) 1c. LOC Commands (Open \T\ Closes Eyes/Rod Pointer) - 0(Both) 2. Best Gaze (Lateral Gaze Paresis) - 0(Normal) 3. Visual Field Loss - 0(No visual loss) 4. Facial Palsy - 0(Normal) 5a. Left Arm: Motor (10-second hold) - 0(No drift) 5b. Right Arm: Motor (10-second hold) - 0(No drift) 6a. Left Leg: Motor (5-second hold - always test supine) - 0(No drift) 6b. Right Leg: Motor (5-second hold - always test supine) - 0(No drift) 7. Limb Ataxia (finger/nose \T\ heel/doyle - test with eyes open) - 0(Absent) 8. Sensory Loss (pinprick arms/legs/face) - 0(Normal) 9. Best Language: Aphasia (description/naming/reading) - 0(No aphasia) 10. Dysarthria (speech clarity - read or repeat words) - 0(Normal) 11. Extinction and Inattention (visual/tactile/auditory/spatial/personal) - 0(No abnormality) Initials: [facility] NIH Stroke Scale - NIH Stroke Score Date: 05/24/2022 Time: 12:54 Total Score = 0 1a. Level of Consciousness (LOC) - 0(Alert) 1b. Level of Consciousness (LOC) (Month \T\ Age) - 0(Both) 1c. LOC Commands (Open \T\ Closes Eyes/Rod Pointer) - 0(Both) 2. Best Gaze (Lateral Gaze Paresis) - 0(Normal) 3. Visual Field Loss - 0(No visual loss) 4. Facial Palsy - 0(Normal) 5a. Left Arm: Motor (10-second hold) - 0(No drift) 5b. Right Arm: Motor (10-second hold) - 0(No drift) 6a. Left Leg: Motor (5-second hold - always test supine) - 0(No drift) 6b. Right Leg: Motor (5-second hold - always test supine) - 0(No drift) 7. Limb Ataxia (finger/nose \T\ heel/doyle - test with eyes open) - 0(Absent) 8. Sensory Loss (pinprick arms/legs/face) - 0(Normal) 9. Best Language: Aphasia (description/naming/reading) - 0(No aphasia) 10. Dysarthria (speech clarity - read or repeat words) - 0(Normal) 11. Extinction and Inattention (visual/tactile/auditory/spatial/personal) - 0(No abnormality) Initials: christine Signatures: Dispatcher [employer] Alex John MD MD cha Garcia, Rubi rg4 Nguyễn Jasso RN RN jl7 Isis Mehta 3 Yaz Hawley Lynsay, RN RN ll1 Hailee Dailey RN RN jh6
--- NOTE | 2022-05-24 13:28 | EDPHYS ---
Physician Documentation [facility] Name: Berny Mccormick Age: 71 yrs Sex: Male : 1950 Arrival Date: 05/24/2022 Time: 11:58 Bed 5 Private MD: ED Physician Alex Flowers HPI: 05/24 12:47 This 71 yrs old Male presents to ER via Wheelchair with complaints of christine Dizziness, Weakness, Trouble Walking. Historical: - Allergies: 12:11 No Known Allergies; jl7 - PMHx: 12:11 Depression; Hyperlipidemia; Hypertension; Thyroid problem; Diabetes mellitus; jl7 - Immunization history:: Adult Immunizations up to date. - Social history:: Smoking status: Patient denies any tobacco usage or history of. - Family history:: not pertinent. ROS: 12:54 Constitutional: Negative for fever, chills, and weight loss, Eyes: Negative for injury, christine pain, redness, and discharge, ENT: Negative for injury, pain, and discharge, Neck: Negative for injury, pain, and swelling, Cardiovascular: Negative for chest pain, palpitations, and edema, Respiratory: Negative for shortness of breath, cough, wheezing, and pleuritic chest pain, Abdomen/GI: Negative for abdominal pain, nausea, vomiting, diarrhea, and constipation, Back: Negative for injury and pain, : Negative for injury, bleeding, discharge, and swelling, MS/Extremity: Negative for injury and deformity, Skin: Negative for injury, rash, and discoloration, Psych: Negative for depression, anxiety, suicide ideation, homicidal ideation, and hallucinations, Allergy/Immunology: Negative for hives, rash, and allergies, Endocrine: Negative for neck swelling, polydipsia, polyuria, polyphagia, and marked weight changes, Hematologic/Lymphatic: Negative for swollen nodes, abnormal bleeding, and unusual bruising. 12:54 Neuro: Positive for dizziness. Exam: 12:54 Constitutional: This is a well developed, well nourished patient who is awake, alert, christine and in no acute distress. Head/Face: Normocephalic, atraumatic. Eyes: Pupils equal round and reactive to light, extra-ocular motions intact. Lids and lashes normal. Conjunctiva and sclera are non-icteric and not injected. Cornea within normal limits. Periorbital areas with no swelling, redness, or edema. ENT: Nares patent. No nasal discharge, no septal abnormalities noted. Tympanic membranes are normal and external auditory canals are clear. Oropharynx with no redness, swelling, or masses, exudates, or evidence of obstruction, uvula midline. Mucous membranes moist. Neck: Trachea midline, no thyromegaly or masses palpated, and no cervical lymphadenopathy. Supple, full range of motion without nuchal rigidity, or vertebral point tenderness. No Meningismus. Chest/axilla: Normal chest wall appearance and motion. Nontender with no deformity. No lesions are appreciated. Cardiovascular: Regular rate and rhythm with a normal S1 and S2. No gallops, murmurs, or rubs. Normal PMI, no JVD. No pulse deficits. Respiratory: Lungs have equal breath sounds bilaterally, clear to auscultation and percussion. No rales, rhonchi or wheezes noted. No increased work of breathing, no retractions or nasal flaring. Abdomen/GI: Soft, non-tender, with normal bowel sounds. No distension or tympany. No guarding or rebound. No evidence of tenderness throughout. Back: No spinal tenderness. No costovertebral tenderness. Full range of motion. Male : Normal genitalia with no discharge or lesions. Skin: Warm, dry with normal turgor. Normal color with no rashes, no lesions, and no evidence of cellulitis. MS/ Extremity: Pulses equal, no cyanosis. Neurovascular intact. Full, normal range of motion. Psych: Awake, alert, with orientation to person, place and time. Behavior, mood, and affect are within normal limits. 12:56 ECG was reviewed by the Attending Physician. christine Vital Signs: 12:09 BP 146 / 90; Pulse 89; Resp 17; Temp 97.9; Pulse Ox 98% ; Weight 99.79 kg; Height 6 ft. jl7 2 in. (187.96 cm); Pain 0/10; 13:00 BP 135 / 74; Pulse 80; Resp 17; Pulse Ox 98% ; Pain 2/10; jh6 14:00 BP 136 / 76; Pulse 76; Resp 17; Pulse Ox 97% ; jh6 16:00 BP 136 / 74; Pulse 74; Resp 16; Pulse Ox 100% ; jh6 12:09 Body Mass Index 28.25 (99.79 kg, 187.96 cm) jl7 NIH Stroke Scale Scores: 12:00 NIHSS Score: 0 6 12:54 NIHSS Score: 0 christine Saeid Coma Score: 12:54 Eye Response: spontaneous(4). Verbal Response: oriented(5). Motor Response: obeys christine commands(6). Total: 15. MDM: 12:28 Patient medically screened. christine 12:55 Differential diagnosis: cardiac arrhythmia, generalized weakness, idiopathic dizziness, christine TIA, vertigo. Data reviewed: vital signs, nurses notes, lab test result(s), EKG, radiologic studies, CT scan, doppler. Data interpreted: equipment monitor phototypesetting: rate is 89 beats/min, rhythm is regular, Pulse oximetry: on room air is 98 %. Test interpretation: by ED physician or midlevel provider: ECG, plain radiologic studies. Counseling: I had a detailed discussion with the patient and/or guardian regarding: the historical points, exam findings, and any diagnostic results supporting the discharge/admit diagnosis, lab results. 05/24 12:34 Order name: Basic Metabolic Panel [facility] 05/24 12:34 Order name: CBC with Diff; Complete Time: 13:07 [facility] 05/24 12:34 Order name: LFT's [facility] 05/24 12:34 Order name: Magnesium [facility] 05/24 12:34 Order name: NT PRO-BNP [facility] 05/24 12:34 Order name: PT-INR; Complete Time: 13:07 [facility] 05/24 12:34 Order name: Troponin HS [facility] 05/24 12:34 Order name: SARS RAPID; Complete Time: 13:20 [facility] 05/24 12:34 Order name: Lipase [facility] 05/24 12:38 Order name: Glucose, Ancillary Testing; Complete Time: 12:47 [facility] 05/24 13:24 Order name: Urine Microscopic Only [facility] 05/24 13:24 Order name: Urine Culture [facility] 05/24 13:25 Order name: Urine Sodium Random [facility] 05/24 13:25 Order name: Osmolality, Serum [facility] 05/24 13:25 Order name: Urine Osmolality [facility] 05/24 14:21 Order name: Urine Dipstick-Ancillary [facility] 05/24 14:50 Order name: CBC with Automated Diff [facility] 05/24 14:50 Order name: CBC with Automated Diff [facility] 05/24 14:50 Order name: Comprehensive Metabolic Panel [facility] 05/24 14:50 Order name: Comprehensive Metabolic Panel [facility] 05/24 14:50 Order name: Lipid Profile [facility] 05/24 14:50 Order name: Lipid Profile [facility] 05/24 14:50 Order name: Magnesium [facility] 05/24 14:50 Order name: Magnesium [facility] 05/24 14:50 Order name: Phosphorus [facility] 05/24 14:50 Order name: Phosphorus [facility] 05/24 14:50 Order name: Sedimentation Rate, [place] [facility] 05/24 14:50 Order name: Sedimentation Rate, [place] [facility] 05/24 14:50 Order name: T4,Total [facility] 05/24 14:50 Order name: T4,Total [facility] 05/24 12:34 Order name: XRAY Chest (1 view) [facility] 05/24 12:34 Order name: EKG; Complete Time: 12:35 [facility] 05/24 12:34 Order name: Cardiac monitoring; Complete Time: 13:09 [facility] 05/24 12:34 Order name: EKG - Nurse/Tech; Complete Time: 13:09 [facility] 05/24 12:34 Order name: IV Saline Lock; Complete Time: 13:09 [facility] 05/24 12:34 Order name: Labs collected and sent; Complete Time: 13:09 [facility] 05/24 12:34 Order name: O2 Per Protocol [facility] 05/24 12:34 Order name: O2 Sat Monitoring [facility] 05/24 12:34 Order name: Urine Dipstick-Ancillary (obtain specimen) [facility] 05/24 12:34 Order name: CT Head Brain wo Cont; Complete Time: 13:20 [facility] 05/24 12:34 Order name: US Carotid Artery Bilateral [facility] 05/24 13:26 Order name: Misc. Order: get ua; Complete Time: 16:45 [facility] 05/24 14:50 Order name: Physical Therapy Consult [facility] 05/24 14:50 Order name: Speech Therapy Consult [facility] 05/24 14:50 Order name: Echo with Doppler [facility] 05/24 14:50 Order name: EKG Electrocardiogram [facility] 05/24 14:50 Order name: Thyroid Stimulating Hormone [facility] 05/24 14:50 Order name: Thyroid Stimulating Hormone [facility] 05/24 14:50 Order name: Chest Pa And Lat (2 Views) [facility] EC:56 Rate is 83 beats/min. Rhythm is regular. QRS [place] is Normal. AL interval is normal. QRS christine interval is normal. QT interval is normal. No Q waves. T waves are Normal. Clinical impression: Normal ECG and No evidence of ischemia. Interpreted by me. Reviewed by me. Administered Medications: 04:00 Drug: NS 0.9% 1000 ml Route: IV; Rate: 1 bolus; Site: left antecubital; [facility] 14:00 Drug: Aspirin Chewable Tablet 162 mg Route: PO; [facility] 14:00 Drug: PlaVIX (clopidogrel) 75 mg Route: PO; [facility] 14:00 Drug: Thiamine 100 mg Route: IV; Rate: per protocol; Site: left antecubital; [facility] 14:00 Drug: Pepcid (famotidine) 20 mg Route: IVP; Site: left antecubital; [facility] 14:00 Drug: Rocephin (cefTRIAXone) 1 grams Route: IV; Rate: per protocol; Site: left [facility] antecubital; Disposition Summary: 05/24/22 13:28 Hospitalization Ordered Hospitalization Status: Observation christine Provider: Oliverio Hart cha Location: Telemetry/MedSurg (observation) christine Condition: Fair christine Problem: new christine Symptoms: have improved christine Bed/Room Type: Standard christine Room Assignment: 410(05/24/22 16:49) eb Diagnosis - Dizziness and giddiness christine - Ataxic gait christine - Unspecified kidney failure - renal insufficency christine - Hypo-osmolality and hyponatremia christine Forms: - Medication Reconciliation Form christine - SBAR form christine NIH Stroke Scale - NIH Stroke Score Date: 05/24/2022 Time: 12:00 Total Score = 0 1a. Level of Consciousness (LOC) - 0(Alert) 1b. Level of Consciousness (LOC) (Month \T\ Age) - 0(Both) 1c. LOC Commands (Open \T\ Closes Eyes/Waist Cutter) - 0(Both) 2. Best Gaze (Lateral Gaze Paresis) - 0(Normal) 3. Visual Field Loss - 0(No visual loss) 4. Facial Palsy - 0(Normal) 5a. Left Arm: Motor (10-second hold) - 0(No drift) 5b. Right Arm: Motor (10-second hold) - 0(No drift) 6a. Left Leg: Motor (5-second hold - always test supine) - 0(No drift) 6b. Right Leg: Motor (5-second hold - always test supine) - 0(No drift) 7. Limb Ataxia (finger/nose \T\ heel/doyle - test with eyes open) - 0(Absent) 8. Sensory Loss (pinprick arms/legs/face) - 0(Normal) 9. Best Language: Aphasia (description/naming/reading) - 0(No aphasia) 10. Dysarthria (speech clarity - read or repeat words) - 0(Normal) 11. Extinction and Inattention (visual/tactile/auditory/spatial/personal) - 0(No abnormality) Initials: [facility] NIH Stroke Scale - NIH Stroke Score Date: 05/24/2022 Time: 12:54 Total Score = 0 1a. Level of Consciousness (LOC) - 0(Alert) 1b. Level of Consciousness (LOC) (Month \T\ Age) - 0(Both) 1c. LOC Commands (Open \T\ Closes Eyes/Waist Cutter) - 0(Both) 2. Best Gaze (Lateral Gaze Paresis) - 0(Normal) 3. Visual Field Loss - 0(No visual loss) 4. Facial Palsy - 0(Normal) 5a. Left Arm: Motor (10-second hold) - 0(No drift) 5b. Right Arm: Motor (10-second hold) - 0(No drift) 6a. Left Leg: Motor (5-second hold - always test supine) - 0(No drift) 6b. Right Leg: Motor (5-second hold - always test supine) - 0(No drift) 7. Limb Ataxia (finger/nose \T\ heel/doyle - test with eyes open) - 0(Absent) 8. Sensory Loss (pinprick arms/legs/face) - 0(Normal) 9. Best Language: Aphasia (description/naming/reading) - 0(No aphasia) 10. Dysarthria (speech clarity - read or repeat words) - 0(Normal) 11. Extinction and Inattention (visual/tactile/auditory/spatial/personal) - 0(No abnormality) Initials: christine Signatures: Dispatcher [employer] Alex John MD MD cha Leal, Jahala RN RN jl7 Yaz Hawley Jennifer, RN RN jh6 Corrections: (The following items were deleted from the chart) 16:49 13:28 christine gomes
--- NOTE | 2022-05-24 13:40 | RAD REPORT ---
EXAM DESCRIPTION: US - CP - 05/24/2022 1:32 pm CLINICAL HISTORY: DIZZINESS Headache, drowsiness, dizziness COMPARISON: Carotid Artery Bilateral dated 12/21/2016; Head Brain Wo Cont dated 05/24/2022 TECHNIQUE: Real-time sonographic evaluation of both carotid systems was performed. Doppler interroga tion was performed with waveform tracing bilaterally. FINDINGS: Normal high resistance waveforms are noted in both external carotid arteries. The common c arotid arteries and internal carotid arteries show normal low resistance waveforms. Mild hard plaquing is seen in both carotid bulbs. Peak systolic and end diastolic velocity values and the ICA/CCA ratios are in the non-hemodynamically significant range. Antegrade flow seen in both vertebral arteries. IMPRESSION: Mild hard plaque is present in both carotid bulbs, slightly greater on left. No evidence of a hemodynamically significant stenosis.
[2022-05-24] MEDS ORDERED: FAMOTIDINE 20 MG/2 ML VIAL IV ONE ×2 (14:15→14:16)
[2022-05-24] MEDS ORDERED: NA CHLORIDE 0.9% 1,000 ML ONE (14:15)
[2022-05-24] MEDS ORDERED: CLOPIDOGREL 75 MG TABLET ONE (14:15)
[2022-05-24] MEDS ORDERED: THIAMINE 200 MG/2 ML INJ ONE (14:15)
[2022-05-24] MEDS ORDERED: ASPIRIN 81 MG CHEWABLE TABLET ONE (14:15)
[2022-05-24] MEDS ORDERED: CEFTRIAXONE 1000 MG/VIAL ONE (14:16)
[2022-05-24 14:21] LABS: Urine Blood Trace-intact (Negative); Urine Glucose 3+ (Negative); Urine Protein Trace (Negative); Urine Specific Gravity 1.025 (1.005-1.030); Urine pH 6.5 (5.0-7.0)
--- NOTE | 2022-05-24 14:55 | RAD REPORT ---
EXAM DESCRIPTION: RAD - Chest Single View - 05/24/2022 2:45 pm CLINICAL HISTORY: COUGH Chest pain. COMPARISON: Chest Single View dated 08/31/2019 FINDINGS: Portable technique limits examination quality. The lungs are emphysematous but grossly clear. The heart is normal in size. No displaced fractures. IMPRESSION: No acute intrathoracic process suspected. COPD.
[2022-05-24 15:29] LABS: Urine Mucus Slight /HPF (None Seen); Urine RBC 21-50 /HPF (None Seen); Urine WBC Clump Few /HPF (None Seen)
[2022-05-24] MEDS: NA CHLORIDE 0.9% 1,000 ML IV SCH (18:30)
[2022-05-24 19:56] VITALS: BMI 28.2
[2022-05-24] MEDS ORDERED: ATORVASTATIN 40 MG TAB PO SCH (21:00)
[2022-05-25 03:46] LABS: Absolute Lymphocytes (CBC) 1.2 K/uL (0.7-4.9); Hematocrit 34.2 % (39.6-49.0); Lymphocytes % 22.6 % (15.3-44.8); MPV 7.6 fL (7.6-11.3); RBC Red Blood Cell Count 4.28 M/uL (4.33-5.43)
[2022-05-25 04:07] LABS: Albumin 3.2 g/dL (3.4-5.0); Bilirubin Total 0.4 mg/dL (0.2-1.0); Magnesium 2.2 mg/dL (1.8-2.4); Phosphorus 2.9 mg/dL (2.5-4.9); Potassium 4.1 mmol/L (3.5-5.1); Protein, Total 5.9 g/dL (6.4-8.2); T4,Total 8.4 ug/dL (4.5-12.1); Thyroid Stimulating Hormone 0.195 uIU/mL (0.360-3.740)
--- NOTE | 2022-05-25 05:39 | EKG ---
Test Date: 2022-05-24 Test Time: 12:11:27 Folder Tier: BERTHA MEASUREMENT RESULTS: Intervals: Rate: 83 IN: 146 QRSD: 102 QT: 374 QTc: 439 Bozman: P: 12 IN: 146 QRS: 54 T: 44 INTERPRETIVE STATEMENTS: Normal sinus rhythm Normal ECG Compared to ECG 10/29/1994 11:53:00 No significant changes Electronically Signed On 05-25-22 05:37:49 CDT by Alfonzo Fried
--- NOTE | 2022-05-25 06:21 | P.HP ---
Certification for Inpatient Patient admitted to: Observation With expected LOS: <2 Midnights Patient will require the following post-hospital care: None Practitioner: I am a practitioner with admitting privileges, knowledge of patient current condition, hospital course, and medical plan of care. Services: Services provided to patient in accordance with Admission requirements found in Title 42 Section 412.3 of the Code of Federal Regulations Patient History Date of Service: 05/24/22 Reason for admission: gait ataxia History of Present Illness: patient is a 71-year-old gentleman came to the hospital with ataxia. Patient has been having issues with his walking for the last 2 months according to his . He was at [employer] today and his did not go with him so a lot of the people at the [employer] noticed that he was close to falling. He notified his and she brought him into the emergency room. In the emergency room, patient had CT scan that did not reveal any abnormalities. Patient will be admitted to the hospital for further workup. Physical therapy evaluation. MRI of the brain. Will also get a Neurology consultation. Patient also having some confusion. Reassess with a mini-mental status exam. Allergies No Known Allergies Allergy (Verified 08/31/19 01:40) Home Medications: Bupropion HBr [Aplenzin] 522 mg 05/25/22 Bupropion HCl [Wellbutrin Xl] 300 mg PO 05/25/22 Dapagliflozin/Metformin HCl [Xigduo Xr 10 mg-1,000 mg Tab] 1 each PO 05/25/22 Duloxetine HCl [Cymbalta] 60 mg PO 05/25/22 Levothyroxine Sodium [Levoxyl] 137 mcg PO 05/25/22 Lisinopril [Zestril] 20 mg PO 05/25/22 Lurasidone HCl [Latuda] 20 mg PO 05/25/22 Simvastatin 20 mg PO BEDTIME 05/25/22 - Past Medical/Surgical History Has patient received pneumonia vaccine in the past: No Diabetic: No -: HTN -: depression -: thyroid issue -: HLD Past Surgical History: Patient denies surgical history - Family History Father Medical History: Heart disease Notes: heart failure Mother Medical History: Cancer - Social History Smoking Status: Never smoker Alcohol use: Yes CD- Drugs: No Caffeine use: Yes Place of Residence: Home Review of Systems 10-point ROS is otherwise unremarkable Physical Examination - Vital Signs Temperature: 97.3 F Blood Pressure: 148/88 Pulse: 70 Respirations: 18 Pulse Ox (%): 99 - Physical Exam General: Alert, In no apparent distress, Oriented x3 HEENT: Atraumatic, PERRLA, Mucous membr. moist/pink, EOMI, Sclerae nonicteric Neck: Supple, 2+ carotid pulse no bruit, No LAD, Without JVD or thyroid abnormality Respiratory: Clear to auscultation bilaterally, Normal air movement Cardiovascular: Regular rate/rhythm, Normal S1 S2, No murmurs Gastrointestinal: Normal bowel sounds, Soft and benign, Non-distended, No tenderness Musculoskeletal: No clubbing, No swelling, No tenderness Integumentary: No rashes Neurological: Normal gait, Normal speech, Normal strength at 5/5 x4 extr, Normal tone, Sensation intact, Cranial nerves 3-12 intact, Normal affect Lymphatics: No axilla or inguinal lymphadenopathy - Studies Laboratory Data (last 24 hrs) 05/24/22 12:15: PT 12.1, INR 1.10 05/24/22 12:15: WBC 8.50, Hgb 12.5 L, Hct 38.3 L, Plt Count 236 05/24/22 12:15: Sodium 129 L, Potassium 4.5, BUN 21 H, Creatinine 1.50 H, Glucose 97, Magnesium 2.6 H D, Total Bilirubin 0.6, AST 17, ALT 28, Alkaline Phosphatase 58, Lipase 63 L Assessment & Plan - Problems (Diagnosis) (1) Ataxia Current Visit: Yes Status: Acute (2) Depression Current Visit: No Status: Acute (3) Dyslipidemia Current Visit: No Status: Acute (4) Hypertension Current Visit: No Status: Acute (5) Hypothyroidism Current Visit: No Status: Acute - Plan 1. MRI of the brain 2. Echocardiogram and carotid Doppler 3. Anti-platelet therapy and statin therapy 4. Neurology consultation 5. Physical therapy/occupational therapy/speech therapy evaluation 6. DVT prophylaxis Discharge Plan: Home Plan to discharge in: 24 Hours - Advance Directives Does patient have a Living Will: No Does patient have a Durable POA for Healthcare: No - Code Status/Comfort Care Code Status Assessed: Yes Code Status: Full Code Critical Care: No Time Spent Managing PTS Care (In Minutes): 45
[2022-05-25 07:18] LABS: NT PRO-BNP < 10
[2022-05-25] MEDS: NA CHLORIDE 0.9% 1,000 ML IV SCH (07:36)
[2022-05-25] MEDS ORDERED: PNEUMOCOCCAL VACCINE 0.5 ML IMVAC ONE (08:00)
[2022-05-25] MEDS ORDERED: ENOXAPARIN 40 MG/0.4 ML SQ SCH (09:00)
[2022-05-25] MEDS ORDERED: ASPIRIN EC 81 MG TAB PO SCH (09:00)
--- NOTE | 2022-05-25 09:06 | RAD REPORT ---
EXAM DESCRIPTION: MRI - Brain Wo Cont - 05/25/2022 8:36 am CLINICAL HISTORY: Ataxia Headache, drowsiness, CVA symptomology COMPARISON: Head Brain Wo Cont dated 05/24/2022 TECHNIQUE: Multi-sequence, multiplanar MR imaging of the brain was performed without contrast. FINDINGS: No intracranial hemorrhage, hydrocephalus or extra-axial fluid collections.Moderate conflu ent T2/FLAIR hyperintensity in the periventricular and deep white matter is present compatible with c hronic microvascular ischemic changes. No edema or shift of midline structures. No findings to suspec t brain mass. DWI is negative for acute CVA. Midline structures are normally formed. Mastoid air cells and paranasal sinuses are clear. IMPRESSION: Negative for acute CVA or other acute intracranial finding. Significant confluent T2/FLAIR hyperintensity in the periventricular and deep white matter probably c hronic microvascular ischemic changes.
[2022-05-25 12:07] VITALS: BP 152/73; TEMP 97.3
[2022-05-25 12:56] VITALS: O2SAT 99
--- NOTE | 2022-05-25 13:20 | P.DS ---
Admission Date: 05/24/22 Discharge Date: 05/25/22 Disposition: DC HOME/HOME HEALTH CARE Discharge Condition: GOOD Reason for Admission: gait ataxia Hospital Course: DIAGNOSES: # Generalized Weakness # KDIGO Stage I Acute Kidney Injury likely due to Dehydration (resolved) # Suspect Hypovolemic Hyponatremia (resolved) # Microscopic Hematuria in Self-Catheterizing Patient # Chronic Microvascular Ischemic Changes # History of ESBL UTI with Indeterminate Urinalysis - Suspect Possible Asymptomatic Bacteruria (denies any urinary symptoms) # Type II Diabetes Mellitus # Hypertension # Hyperlipidemia # Hypothyroidism HOSPITAL COURSE: Mr. Berny Mccormick is a pleasant 71 year old male with a past medical history significant for type 2 diabetes mellitus, hypertension, hyperlipidemia, and hypothyroidism who was admitted to the [facility] on 05/24/2022 for generalized weakness. He was admitted to the Medicine service. There were reported concerns of confusi on; however, this was not appreciated today. This morning, his creatinine and sodium levels have improved. His carotid ultrasound revealed, "no evidence of a hemodynamically significant stenosis." His CT head revealed, "No acute intracranial abnormality. Significant diminished density in the periventricular white matter probably is related to chronic microvascular ischemic changes." His MRI brain revealed, "Negative for acute CVA or other acute intracranial finding. Significant confluent T2/FLAIR hyperintensity in the periventricular and deep white matter probably chronic microvascular ischemic changes." I spoke with Dr. Martinez (Neurology), who recommended that he schedule follow-up appointment with him in clinic at his earliest convenience for further evaluation. I also spoke with Dr. Cuadra (Urology) regarding his selfcatheterization as well as his microscopic hematuria; he stated that he will have his office staff arrange a follow-up appointment with him in clinic. I called his PCP (Dr. Alfaro) and reviewed his hospital course with him. Collectively, we are not convinced that he has a urinary tract infection - it would seem more likely that he has colonization due to selfcatheterization and asymptomatic bacteriuria. He was evaluated by physical therapy, who recommended that he be discharged with a frontwheel walker and home health with physical therapy services. With the assistance of case management, this was arranged for him. On 05/25/2022, he was seen on rounds and deemed medically stable for discharge. He was discharged with instructions to schedule follow-up appointments with his PCP (Dr. Alfaro) in 3-5 days, with Urology (Dr. Cuadra) at his earliest convenience, and with Neurology (Dr. Martinez) at his earliest convenience. He was provided a new prescription for levothyroxine 125 mcg daily (down from 137 mcg) given his low TSH. He and his (Ms. Arteaga) were given the opportunity to ask questions and reported no further questions. Furthermore, all questions were answered to the best of my ability. Today, I personally spent 40 minutes on his case, of which greater than 50% of t he time was spent in patient education, counseling, and coordination of care as described above. Vital Signs/Physical Exam: Temp Pulse Resp BP Pulse Ox 97.3 F 69 16 152/73 H 97 05/25/22 12:00 05/25/22 12:00 05/25/22 12:00 05/25/22 12:00 05/25/22 12:00 General: Alert, In no apparent distress, Oriented x3 HEENT: Atraumatic, PERRLA, Mucous membr. moist/pink, EOMI, Sclerae nonicteric Neck: Supple, JVD not distended Respiratory: Clear to auscultation bilaterally, Normal air movement Cardiovascular: No edema, Regular rate/rhythm, Normal S1 S2, No gallops, No rubs, No murmurs Gastrointestinal: Normal bowel sounds, Soft and benign, Non-distended, No tenderness, No rebound, No guarding Musculoskeletal: No clubbing Integumentary: No rashes Neurological: Normal speech, Normal strength at 5/5 x4 extr, Sensation intact, Cranial nerves 3-12 intact, Normal affect, Other (no evidence of ataxia with [id number]-[id number] or gnli-rj-muyg testing), Abnormal gait (slightly shuffling gait, but stable. Romberg negative.) Laboratory Data at Discharge: WBC 5.40 K/uL (4.3-10.9) D 05/25/22 02:58 Hgb 11.3 g/dL (13.6-17.9) L 05/25/22 02:58 Hct 34.2 % (39.6-49.0) L 05/25/22 02:58 Plt Count 197 K/uL (152-406) 05/25/22 02:58 PT 12.1 SECONDS (9.5-12.5) 05/24/22 12:15 INR 1.10 05/24/22 12:15 Sodium 132 mmol/L (136-145) L 05/25/22 02:58 Potassium 4.1 mmol/L (3.5-5.1) 05/25/22 02:58 BUN 15 mg/dL (7-18) 05/25/22 02:58 Creatinine 0.99 mg/dL (0.55-1.3) 05/25/22 02:58 Glucose 82 mg/dL (74-106) 05/25/22 02:58 Phosphorus 2.9 mg/dL (2.5-4.9) 05/25/22 02:58 Magnesium 2.2 mg/dL (1.8-2.4) 05/25/22 02:58 Total Bilirubin 0.4 mg/dL (0.2-1.0) 05/25/22 02:58 AST 12 U/L (15-37) L 05/25/22 02:58 ALT 19 U/L (12-78) 05/25/22 02:58 Alkaline Phosphatase 47 U/L (45-117) 05/25/22 02:58 Triglycerides 72 mg/dL (<150) 05/25/22 02:58 Cholesterol 76 mg/dL (<200) 05/25/22 02:58 HDL Cholesterol 40 mg/dL (40-60) 05/25/22 02:58 Cholesterol/HDL Ratio 1.90 05/25/22 02:58 Lipase 63 U/L (73-393) L 05/24/22 12:15 Home Medications: Bupropion HCl [Wellbutrin Xl] 300 mg PO DAILY 05/25/22 Dapagliflozin/Metformin HCl [Xigduo Xr 10 mg-1,000 mg Tab] 1 each PO DAILY 05/25/22 Duloxetine HCl [Cymbalta] 60 mg PO DAILY 05/25/22 Levothyroxine Sodium [Levothyroxine] 125 mcg PO DAILY #30 tab 05/25/22 Lisinopril [Zestril] 20 mg PO DAILY 05/25/22 Lurasidone HCl [Latuda] 20 mg PO DAILY 6PM 05/25/22 Simvastatin 20 mg PO BEDTIME 05/25/22 New Medications: Levothyroxine Sodium [Levothyroxine] 125 mcg PO DAILY #30 tab Physician Discharge Instructions: 1. Please schedule a follow-up with your PCP (Dr. Alfaro) in 3-5 days 2. Please schedule a follow-up with Neurology (Dr. Martinez) at your earliest convenience for your generalized weakness 3. Please schedule a follow-up with Urology (Dr. Cuadra) at your earliest convenience for the blood in your urine Diet: Regular Activity: Ad leny Followup: Jerson Alfaro MD [ACTIVE - CAN ADMIT] - Juan Carlos Martinez MD [ASSOCIATE-ACTIVE - CAN ADMIT] - Helder Cuadra [ACTIVE - CAN ADMIT] -
--- NOTE | 2022-05-26 02:28 | CON ---
Reason For Consultation: Consultation called because of both dizziness and fall. History Of Present Illness: Mr. Mccormick is a 71-year-old patient with depression, dyslipidemia, hy pertension, thyroid disease, and diabetes mellitus, who comes to [facility] with multiple ep isodes of dizziness with falls and near falls. Episodes appear to come without significant warning. He denies chest pounding, palpitations, or shortness of breath. He would tend to slump down. Denie s any tonic-clonic activity, tongue biting, or loss of bowel and bladder control. The patient report edly has his blood pressures back to normal at the time. He is evaluated and oxygenation and blood s ugars are normal as well. At [facility], his head CT scan and brain MRI were unremarkable f or any acute ischemic or hemorrhagic changes, however, the studies were remarkable for significant co nfluent moderate small-vessel ischemic disease in the subcortical and periventricular white matter. The patient's blood work at [facility] was essentially unremarkable for his complete blood c ount with differential. Coagulation panel was normal. His basic metabolic panel was unremarkable ex cept for slightly low sodium of 129, creatinine was elevated to 1.50, elevated magnesium of 2.9, and low thyroid-stimulating hormone of 0.195. Urinalysis did show few clumps of white blood cells greate r than 50 as well, trace protein, 20-50 red blood cells, negative nitrite, 1+ esterase. He was diagn osed with urinary tract infection and treated with 1 g of Rocephin, but no continued antibiotics. Past Medical History: As noted. Allergies: NO KNOWN DRUG ALLERGIES. Medications: Bupropion 522 mg daily, Cymbalta 60 mg daily, levothyroxine 137 mcg daily, Zestril 20 m g daily, Latuda 20 mg daily, and simvastatin 20 mg daily. Family History: Heart disease in father along with heart failure and cancer in mother. Social History: No tobacco use, but chronic alcohol use. Review of Systems: Aside from the episodes mentioned above, he denies any recent fevers or chills. No nausea or vomitin g. No myalgias, arthralgias, rash, weight change, or psychiatric issues. Physical Examination: Vital Signs: Blood pressure 152/73, pulse 69, respiratory rate 16, temperature 97.3, oxygen saturati on 97%. General: Mr. Mccormick is resting in bed. He is eating lunch. He is in no acute distress. HEENT: He is normocephalic, atraumatic. Sclerae anicteric. Oropharynx pink and moist. Neck: Supple. Chest: Clear. Heart: Regular. Extremities: Show no significant clubbing, cyanosis, or edema. Neurological: He is alert and oriented to situation, place, and person. He follows commands appropr iately. Cranial nerves 2 through 12 are intact. Motor examination, the upper and lower extremities, no focal deficits. Sensory exam, mild stocking-glove loss to light touch and temperature. Coordina tion intact in upper and lower extremities. His gait is good balance right arm swing. Assessment: Mr. Mccormick is a 71-year-old patient with uncharacterized syncopal episodes. He does not have a focal neurological deficit on his examination. He has blood work and shows hypothyroidism , which he is on treatment for. His brain MRI shows moderate confluent small vessel ischemic disease with no acute findings. Plan: 1.At least aspirin, perhaps along with Plavix 75 mg daily. 2.Lipitor 40 mg at bedtime. He did appear to have a urinary tract infection on admission and was tr eated for that and perhaps should be on cranberry 400 mg twice daily. 3.He did come with dehydration and should be on fluid management and feeding about 8 glasses of wate r daily. Plan as indicated. The patient follow instructions as noted. May be discharged home today and follow up in Dr. Martinez's o ffice 1 month later. CONNIE/SALLY Voice ID: [id number] Report ID: [id number]
--- NOTE | 2022-05-26 06:55 | ECHO ---
HEIGHT: 6 ft 2 in WEIGHT: 220 lb 0 oz DATE OF STUDY: 05/25/[address]: Oliverio Hart MD 2-DIMENSIONAL: YES M.MODE: YES DOPPLER: YES COLOR FLOW: YES TDS: NO PORTABLE: YES DEFINITY: NO BUBBLE STUDY: NO DIAGNOSIS: STROKE CARDIAC HISTORY: CATHERIZATION: SURGERY: PROSTHETIC VALVE: PACEMAKER: MEASUREMENTS (cm) DIASTOLIC (NORMALS) SYSTOLIC (NORMALS) IVSd 1.0 (0.6-1.2) LA Diam 3.9 (1.9-4.0) LVEF 55-60% LVIDd 4.3 (3.5-5.7) LVIDs 3.2 (2.0-3.5) %FS 25% LVPWd 1.3 (0.6-1.2) Ao Diam 3.4 (2.0-3.7) 2 DIMENSIONAL ASSESSMENT: RIGHT ATRIUM: NORMAL LEFT ATRIUM: NORMAL RIGHT VENTRICLE: NORMAL LEFT VENTRICLE: NORMAL TRICUSPID VALVE: MILD TRICUSPID REGURGITATION MITRAL VALVE: MILD MITRAL REGURGITATION PULMONIC VALVE: NORMAL AORTIC VALVE: MILD AORTIC INSUFFICIENCY PERICARDIAL EFFUSION: NONE AORTIC ROOT: NORMAL LEFT VENTRICULAR WALL MOTION: NORMAL. DOPPLER/COLOR FLOW: SEE BELOW. COMMENTS: NORMAL LEFT VENTRICULAR EJECTION FRACTION 55-60%. NORMAL WALL MOTION. MILD (TRICUSPID REGURGITATION, MITRAL REGURGITATION, AORTIC INSUFFICIENCY). TECHNOLOGIST: TRAVIS STEWARD
== END 2022-05-25 15:10 | disposition home health service (06) ==
LOC: ER 11:49 → ERHOLD 14:44 → 4TH 17:16
PROVIDERS: ADMIT Hospitalist; ATTEND Internal Medicine
DX: N17.9 Acute kidney failure, unspecified (principal); N39.0 Urinary tract infection, site not specified; B95.2 Enterococcus as the cause of diseases classified elsewhere; B96.89 Other specified bacterial agents as the cause of diseases classified elsewhere; Z16.24 Resistance to multiple antibiotics; E87.1 Hypo-osmolality and hyponatremia; E86.0 Dehydration; R26.0 Ataxic gait; F32.A Depression, unspecified; E78.5 Hyperlipidemia, unspecified; I10 Essential (primary) hypertension; E03.9 Hypothyroidism, unspecified; R31.21 Asymptomatic microscopic hematuria; I99.9 Unspecified disorder of circulatory system; I25.9 Chronic ischemic heart disease, unspecified; I25.10 Atherosclerotic heart disease of native coronary artery without angina pectoris; Z20.822 Contact with and (suspected) exposure to COVID-19; R31.29 Other microscopic hematuria
CPT/HCPCS: 93005; 93306; 87088; 85025 ×2; 87086; 80048; 36415; 83735 ×2; 84100; 85610; 84300; 80061; 82947 ×5; 80076; 84436; 85652; 84443; 87077; 87186; 84484; 83690; 80053; 83880; 83935; 70450; 71045; 90471; 93880; 70551; 90732; 97161; 96375; 96374; 99284; 87811; J3411; J1650; J7030 ×3; G0378 ×3; 81003; 81015

== ENCOUNTER 2022-12-01 08:00 | Day surgery (SDC) | payer OTHER ==
[2022-11-16 10:33] LABS: Absolute Lymphocytes (CBC) 1.2 K/uL (0.7-4.9); Hematocrit 36.6 % (39.6-49.0); Lymphocytes % 27.8 % (15.3-44.8); MCV 79.7 fL (80-100); MPV 7.4 fL (7.6-11.3); RBC Red Blood Cell Count 4.59 M/uL (4.33-5.43)
[2022-11-16 10:42] LABS: Potassium 4.5 mmol/L (3.5-5.1)
[2022-11-16 10:44] LABS: Protime INR 1.04
--- NOTE | 2022-11-16 14:39 | RAD REPORT ---
EXAM DESCRIPTION: [place] Pa And Lat (2 Views)11/16/2022 10:35 am CLINICAL HISTORY: Pre op pending urolift COMPARISON: Chest Single View dated 05/24/2022; Chest Single View dated 08/31/2019 TECHNIQUE: PA and lateral views of the chest. FINDINGS: The lungs are clear.Mild hyperinflation. No pneumothorax or effusion. The cardiomediastina l contours are unremarkable. IMPRESSION: No acute cardiopulmonary process.
--- NOTE | 2022-11-16 16:36 | EKG ---
Test Date: 2022-11-16 Test Time: 10:03:10 Drug Discovery Informatics Specialist: WALLY MEASUREMENT RESULTS: Intervals: Rate: 66 OR: 150 QRSD: 90 QT: 396 QTc: 415 Butler: P: -22 OR: 150 QRS: 34 T: 35 INTERPRETIVE STATEMENTS: Normal sinus rhythm Normal ECG Compared to ECG 05/24/2022 12:11:27 No significant changes Electronically Signed On 11-16-22 16:35:20 PROTECTIVE SERVICES CASE WORKER by Johnson Perez
[2022-12-01] MEDS ORDERED: CEFAZOLIN SODIUM 2 GM/VIAL ONE (08:18)
[2022-12-01] MEDS ORDERED: Ringers Lactate 1,000 ML IV ONE (08:19)
[2022-12-01] MEDS ORDERED: ROCURONIUM 50 MG/5 ML VIAL IV ONE (08:26)
[2022-12-01] MEDS ORDERED: SUCCINYLCHOLINE 20 MG/ML (10 ML) IV ONE (08:26)
[2022-12-01] MEDS ORDERED: FENTANYL CITR 100 MCG/2 ML ONE (08:27)
[2022-12-01] MEDS ORDERED: propofoL 200 MG/20 ML VIAL IV ONE (08:27)
[2022-12-01] MEDS ORDERED: LIDOCAINE 1% MPF 5 ML VIAL ONE (08:28)
[2022-12-01] MEDS ORDERED: MIDAZOLAM HCL 2 MG/2 ML INJ ONE (08:28)
[2022-12-01] MEDS ORDERED: ONDANSETRON 4 MG/2 ML VIAL ONE (08:28)
[2022-12-01] MEDS ORDERED: EPHEDRINE SULF 50 MG/ML VIAL ONE (10:17)
[2022-12-01] MEDS ORDERED: CODEINE 30MG/APAP 300MG TAB PO PRN (10:55)
[2022-12-01] MEDS ORDERED: PHENAZOPYRIDINE 100MG TAB PO ONE ×2 (10:55→11:19)
[2022-12-01] MEDS ORDERED: CODEINE 30MG/APAP 300MG TAB ONE (11:30)
[2022-12-01 11:41] VITALS: BP 143/83; TEMP 97.1; O2SAT 100
--- NOTE | 2022-12-01 13:17 | OP ---
Surgeon: ANA BRINK Preoperative Diagnosis: Benign prostatic hypertrophy with lower urinary tract obstruction and sympto ms. Postoperative Diagnosis: Benign prostatic hypertrophy with lower urinary tract obstruction and sympt oms. Principal Procedure: Prostatic urethral lift/UroLift with 6 implants placed. Indication For Procedure: Mr. Mccormick presented to the Urology Clinic with obstructive urinary sym ptoms due to BPH. He was placed on medical therapy/Flomax and had some improvement in his urinary sy mptoms, yet they persisted in a moderate fashion. This was likely secondary to an intravesically pro jecting small median lobe as well as lateral lobar hypertrophy, so he was counseled on options for ma nagement of his obstructions to include the UroLift and he elected to proceed. Procedure In Detail: The patient was consented in the preoperative holding area before being transfe rred to the operative suite where general anesthesia was induced. He was given Ancef 2 g IV antimicr obial prophylaxis and placed in the lithotomy position, padded and secured to the table appropriately . His genitalia were prepped with Hibiclens and he was draped in standard fashion. The case was beg un using the 20-Algerian UroLift obturator and scope to traverse the urethra and into the bladder with ease. The bladder was decompressed of fluid and urine, and the first implant was targeted in the lef t lateral wall of the prostate at the level of the bladder neck approximately 1.5 to 2 cm distal to t he bladder neck opening. The targeting was approximately at the 9 to 10 o'clock position and the imp lant ended up situated more at the 9 o'clock position. The first pull of the trigger was performed a fter 10 degrees of compression was made and did deliver the needle. An additional 10 degrees of comp ression was obtained to ensure the needle delivered through to the capsular surface of the prostate. A third pull of the trigger deployed the capsular tab and began to partially retract the needle. I then advanced the scope back to the midline where it was then advanced approximately 2 to 3 mm until the white of the monofilament was centered in the delivery bay, and the fourth pull of the trigger di d tailor the suture applying the urethral end piece. This did invaginate nicely in the mucosa of the prostate with a nice rim of tissue between that and the entry into the bladder. As a result, simila r implant targeting was performed this time on the right side, but this time slightly higher up betwe en the 10 and 11 o'clock position in order to elevate the bladder neck. After performing this, the m edian lobe was still apparently an issue at the level of the bladder neck; so an additional 2 implant s were placed on the right and the left side at the level of the verumontanum lateralizing the apical tissues there. A survey of the channel confirmed persistence of an obstructive appearance of the me brittany lobe, so a fifth implant was targeted this time within the right lateral sulcus of the median lo be, directing the median lobe laterally to the 9 o'clock position. This was done successfully and th e implant did invaginate within the tissue within the prostatic fossa outside of the entry into the b ladder. Repeat survey of the prostatic urethral channel did reveal a nice continuous anterior channe l, but some slight coaptation at the level of the bladder neck. As a result, I elected to stack an i mplant on the left side above the 9 o'clock placed initial bladder neck location for the first implan t placed. This did further elevate the bladder neck opening creating more of a continuous anterior c hannel. As a result, with his bladder decompressed and a continuous channel visible, I then refilled his bladder and placed an 18-Algerian catheter with ease with 25 cc of sterile water placed in the bal loon. The catheter was placed to gravity drainage and connected to a leg bag. The patient was taken out of the lithotomy position, awakened from general anesthesia, transferred to a stretcher, and the n transferred to the recovery room in good condition. Complications: None. Discharge Disposition: He may follow up in the Urology Clinic in 1 to 2 months' time and we will ramin ssess his symptoms at that time. WR/MODL Voice ID: [id number] Report ID: [id number]
== END 2022-12-01 12:27 | disposition home or self-care (01) ==
LOC: OR 08:00
PROVIDERS: ATTEND Urology
PROC: 0T7D8DZ Dilation of Urethra with Intraluminal Device, Via Natural or Artificial Opening Endoscopic (ICD-10-PCS; principal; 2022-12-01 09:30)
DX: N40.1 Benign prostatic hyperplasia with lower urinary tract symptoms (principal); N13.8 Other obstructive and reflux uropathy; I10 Essential (primary) hypertension; F32.A Depression, unspecified; E78.00 Pure hypercholesterolemia, unspecified; E03.9 Hypothyroidism, unspecified; N18.31 Chronic kidney disease, stage 3a
CPT/HCPCS: 93005; 87088; 85025; 87086; 80048; 36415; 85610; 82947 ×2; 71046; 52441; 52442 ×5; J2704; J2001; J2250; J3010; J2405; J7120

== ENCOUNTER 2024-02-28 09:50 | Day surgery (SDC) | payer OTHER ==
[2024-02-28 10:33] LABS: MPV 6.8 fL (7.6-11.3); Platelets 197 thou/uL (152-406)
[2024-02-28 10:43] LABS: PT Prothrombin Time 10.8 SECONDS (9.5-12.5); PTT, Activated Partial Thromb 26.4 SECONDS (24.3-36.9); Protime INR 0.98
[2024-02-28 12:17] VITALS: BMI 27.1
[2024-02-28 12:18] VITALS: O2SAT 100
[2024-02-28 15:50] LABS: CSF Glucose 71 mg/dL (40-70)
[2024-02-28 16:49] LABS: Body Fluid Source CSF; Tube # #4
[2024-02-28 16:50] LABS: Appearance SLT. TURBID (CLEAR); Body Fluid WBC 0 /mm^3; Color of Supernate Not Xanthochromic (Not Xantho)
[2024-02-28 16:51] LABS: Body Fluid Lymphocytes 10 %; Fluid Total Cells Count 14
[2024-02-28 16:52] LABS: Color of fluid Pink (COLORLESS)
[2024-02-28 17:01] VITALS: BP 139/82; TEMP 98.7
--- NOTE | 2024-02-29 12:34 | RAD REPORT ---
EXAM DESCRIPTION: RAD - Lumbar Puncture For Dx - 02/28/2024 2:09 pm CLINICAL HISTORY: LP Memory loss, headache COMPARISON: No comparisons TECHNIQUE: The procedure, risks and alternatives to the procedure were discussed with the patient in detail. After answering all questions, both oral and written consent were obtained. Time-out procedu re was performed. The patient was placed in an oblique prone position on the fluoroscopic table. The skin of the lower back was prepped and draped in the usual sterile fashion. After anesthetizing the skin and deeper sof t tissues with 1% lidocaine, a 22 gauge needle was advanced into the thecal sac at the L2-3 level. 12 cc of clear CSF obtained At the conclusion of the procedure the needle was withdrawn and a sterile bandage placed over the pun cture site. The patient tolerated the procedure well without immediate complications. Total fluoro time: 6 minutes Images obtained: 3 IMPRESSION: Successful fluoroscopic guided lumbar puncture. All obtained fluid was sent to the lab f or studies requested by the referring physician.
== END 2024-02-28 16:14 | disposition home or self-care (01) ==
LOC: RAD 09:50 → DS 16:14
PROVIDERS: ATTEND Psychiatry & Neurology Neurology with Special Qualifications in Child Neurology
PROC: 009U3ZX Drainage of Spinal Canal, Percutaneous Approach, Diagnostic (ICD-10-PCS; principal; 2024-02-28)
PROC: B01BZZZ Fluoroscopy of Spinal Cord (ICD-10-PCS; 2024-02-28)
DX: F03.90 Unspecified dementia, unspecified severity, without behavioral disturbance, psychotic disturbance, mood disturbance, and anxiety (principal); M47.12 Other spondylosis with myelopathy, cervical region; M47.817 Spondylosis without myelopathy or radiculopathy, lumbosacral region; E11.9 Type 2 diabetes mellitus without complications; E78.5 Hyperlipidemia, unspecified; R55 Syncope and collapse
CPT/HCPCS: 36415; 62328; 77003; 82542; 82945; 84157; 85049; 85610; 85730; 89050

== ENCOUNTER 2024-11-27 10:19 | Emergency (ER) | payer OTHER ==
--- NOTE | 2024-11-27 11:08 | RAD REPORT ---
EXAMINATION: ONE VIEW CHEST XR CLINICAL INDICATION: Male, 73 years old.,DYSPNEA TECHNIQUE: Frontal chest projection is submitted. Examination is limited by patient positioning and t echnique. COMPARISON: 11/16/2022 FINDINGS: The lungs are well inflated and clear. No pneumothorax or sizable effusion. The heart is normal in s ize. Mediastinal contours are unremarkable. IMPRESSION: No acute intrathoracic abnormalities.
[2024-11-27 11:12] LABS: Absolute Eosinophils 0.1 K/uL (0-0.5); Absolute Monocytes 0.8 K/uL (0.1-1.3); Absolute Neutrophil 4.4 K/uL (1.8-8.0); Basophils % 0.3 % (0-1.3); Eosinophils % 1.2 % (0-4.4); Hematocrit 41.2 % (39.6-49.0); Hemoglobin 13.7 g/dL (13.6-17.9); Lymphocytes % 16.2 % (15.3-44.8); MCH 28.6 pg (27.0-35.0); MCHC 33.3 g/dL (32.0-36.0); MCV 85.8 fL (80-100); MPV 7.1 fL (7.6-11.3); Monocytes % 12.2 % (3.3-12.3); Neutrophils % 70.1 % (41.7-73.7); Platelets 222 thou/uL (152-406); Red Cell Distribution Width 16.7 % (12.1-15.2)
[2024-11-27 11:19] LABS: PT Prothrombin Time 11.7 SECONDS (10-13.0); Protime INR 1.03
--- NOTE | 2024-11-27 11:29 | RAD REPORT ---
EXAM: CT Head Brain Wo Cont HISTORY: VISUAL DISTURBANCES COMPARISON: 05/24/[address] 01/26/2024 MRI brain TECHNIQUE: Multiple contiguous axial images were obtained for a CT of the brain without contrast. Sag ittal and coronal reformats were performed. One or more of the following dose reduction techniques were used: Automated exposure control, adjus tment of the mA and kV according to patient size, and iterative reconstruction. Unless otherwise specified, incidental findings do not require dedicated imaging follow-up. FINDINGS: No evidence of hydrocephalus, intracranial hemorrhage, or extra-axial fluid collection. Stable diffuse brain atrophy with moderate periventricular and deep white matter chronic microvascul ar ischemic changes. The calvarium is intact. Volume loss and wall thickening along the left maxillary sinus again seen. M astoid air cells are essentially clear. IMPRESSION: No evidence of acute intracranial abnormality.
[2024-11-27 11:34] LABS: Specific Gravity 1.023 (1.005-1.030); Sqamous Epithelial <5 /HPF (None Seen); Urine Bacteria None Seen /HPF (<20); Urine Bilirubin NEGATIVE (Negative); Urine Blood Negative (Negative); Urine Clarity Extremely Turbid (Clear); Urine Color Yellow (Yellow); Urine Culture Reflex Order NOT NEEDED; Urine Glucose NEGATIVE (Negative); Urine Ketones NEGATIVE (Negative); Urine Microscopic Reflex YN ORDER UMIC; Urine Mucus Slight /HPF (None Seen); Urine Nitrite NEGATIVE (Negative); Urine Protein TRACE (Negative); Urine RBC <5 /HPF (None Seen); Urine Urobilinogen Normal (Normal); Urine WBC <5 /HPF (<5); Urine pH 7.5 (5.0-7.0)
[2024-11-27 11:39] LABS: Anion Gap 9.1 mEq/L (5.0-15.0); Potassium 4.1 mEq/L (3.5-5.1); Troponin High Sensitivity 4.7 pg/mL (<58.9)
--- NOTE | 2024-11-27 12:24 | EDPHYS ---
Physician Documentation [facility] Name: Berny Mccormick Age: 73 yrs Sex: Male : 1950 Arrival Date: 11/27/2024 Time: 10:19 Bed 2 Private MD: ED Physician Aníbal Roberson HPI: 11/27 10:37 This 73 yrs old Male presents to ER via Wheelchair with complaints of Vision dr5 Problem - double vision last night, Sent by Dr orourke. 10:37 Onset: The symptoms/episode began/occurred acutely. Patient is a 73-year-old male with dr5 history of depression, diabetes, hyperlipidemia, hypertension, thyroid problem, Alzheimer's coming in with double vision that occurred last night. Patient reports that he woke up this morning with slight blurry vision that has since resolved. Patient discussed with Dr. Orourke and was sent to ER. Patient denies any visual disturbance at this time, shortness of breath, chest pain, fever. Patient does endorse chronic left knee pain has been bothering her for the past 4 years.. 11:00 Patient has been taking alzheimer's infusions with the last one being 6 days [address] dr5 (Leqembi). Historical: - Allergies: 10:25 No Known Allergies; ll1 - PMHx: 10:25 Depression; diabetes mellitus; Hyperlipidemia; Hypertension; Thyroid problem; ll1 Alzheimer's disease; - Immunization history:: Adult Immunizations up to date. - Infectious Disease History:: Denies. - Social history:: Smoking status: unknown. ROS: 10:37 Constitutional: as per hpi dr5 Exam: 11:01 Constitutional: This is a well developed, well nourished patient who is awake, alert, dr5 and in no acute distress. Head/Face: Normocephalic, atraumatic. ENT: Nares patent. No nasal discharge, no septal abnormalities noted. Tympanic membranes are normal and external auditory canals are clear. Oropharynx with no redness, swelling, or masses, exudates, or evidence of obstruction, uvula midline. Mucous membranes moist. Neck: Trachea midline, no thyromegaly or masses palpated, and no cervical lymphadenopathy. Supple, full range of motion without nuchal rigidity, or vertebral point tenderness. No Meningismus. Chest/axilla: Normal chest wall appearance and motion. Nontender with no deformity. No lesions are appreciated. Cardiovascular: Regular rate and rhythm with a normal S1 and S2. Normal PMI, no JVD. No pulse deficits. Respiratory: Lungs have equal breath sounds bilaterally, clear to auscultation. No rales, rhonchi or wheezes noted. No increased work of breathing, no retractions or nasal flaring. Abdomen/GI: Soft, non-tender, non-distended Back: No spinal tenderness. No costovertebral tenderness. Full range of motion. Skin: Warm, dry with normal turgor. Normal color with no rashes, no lesions, and no evidence of cellulitis. MS/ Extremity: Pulses equal, no cyanosis. Neurovascular intact. Full, normal range of motion. Neuro: Awake and alert, GCS 15, oriented to person, place, time, and situation. Cranial nerves II-XII grossly intact. Motor strength 5/5 in all extremities. Sensory grossly intact. Cerebellar exam normal. Normal gait. Vital Signs: 10:24 BP 105 / 76; Pulse 92; Resp 18; Pulse Ox 100% on R/A; Weight 92.99 kg; Height 6 ft. 1 ll1 in. ; Pain 0/10; 10:28 BP 105 / 76; ll1 11:24 BP 114 / 79; Pulse 66; Resp 15; Pulse Ox 100% ; cm10 12:00 BP 123 / 85; Pulse 66; Resp 15; Pulse Ox 100% on R/A; cm10 10:24 Body Mass Index 27.05 (92.99 kg, 185.42 cm) ll1 10:24 Pain Scale: Adult ll1 MDM: 10:33 Medical Screening Exam initiated dr5 10:58 ED course: Spoke with Dr. Orourke to go over plan of care. Will call patient back dr5 after bloodwork, CT scan, CXR, and urinalysis have returned for definitive plan of care. Dr. Orourke recommended CT to rule out micro-hemorrhages and brain edema, bloodwork to check kidneys and electrolytes, and UA for UTI.. 12:30 Differential diagnosis: viral Infection, bacterial infection, ICH (micro-hemorrhages dr5 from alzeheimer's medication), HEMANT, UTI. Data reviewed: vital signs, nurses notes, lab test result(s). Consideration of Admission/Observation Escalation of care including admission/observation considered. Escalation considered if patient had ICH. I considered the following discharge prescriptions or medication management in the emergency department. Care significantly affected by the following chronic conditions: Diabetes, Hypertension, Hyperlipidemia, Thyroid, Alzheimer's Disease. Care significantly affected by the following Social Determinants of Health: Poor access to healthcare and/or lack of insurance, Poor access to transportation, Problems related to employment. Counseling: I had a detailed discussion with the patient and/or guardian regarding the historical points, exam findings, and any diagnostic results supporting the discharge/admit diagnosis, the presence of at least one elevated blood pressure reading (>120/80) during this emergency department visit, the need for outpatient follow up, for definitive care, a family practitioner, a neurologist, to return to the emergency department if symptoms worsen or persist or if there are any questions or concerns that arise at home. ED course: Spoke with Dr. Orourke and gave all results. Ok for discharge with plans to follow up with them this week. All questions answered. Patient does not have any symptoms on discharge and feeling back to normal.. 11/27 10:36 Order name: Basic Metabolic Panel; Complete Time: [facility] [place] 11/27 10:36 Order name: CBC with Diff; Complete Time: [facility] [place] 11/27 10:36 Order name: NT PRO-BNP; Complete Time: [facility] [place] 11/27 10:36 Order name: PT-INR; Complete Time: [facility] [place] 11/27 10:36 Order name: Troponin HS; Complete Time: [facility] [place] 11/27 10:49 Order name: Urinalysis w/ reflexes; Complete Time: [facility] [place] 11/27 10:36 Order name: CT Head Brain wo Cont; Complete Time: [facility] [place] 11/27 10:36 Order name: XRAY Chest (1 view); Complete Time: : [facility] [place] 11/27 10:36 Order name: Cardiac monitoring; Complete Time: : [facility] [place] 11/27 10:36 Order name: EKG - Nurse/Tech; Complete Time: [facility] [place] 11/27 10:36 Order name: IV Saline Lock; Complete Time: [facility] [place] 11/27 10:36 Order name: Labs collected and sent; Complete Time: : [facility] [place] 11/27 10:36 Order name: O2 Per Protocol; Complete Time: 10:39 [facility] [place] 11/27 10:36 Order name: O2 Sat Monitoring; Complete Time: 10:39 dr5 EC:55 Rate is 73 beats/min. Rhythm is regular. QRS [place] is Normal. [place] interval is normal at dr5 172 msec. QRS interval is normal at 102 msec. QT interval is normal at 418 msec. Administered Medications: No medications were administered Disposition: 14:05 I was immediately available on-site in the Emergency Department for consultation in the ms3 care of the patient. Disposition Summary: 11/27/24 12:24 Discharge Ordered Notes: Location: Home dr5 Condition: Stable dr5 Diagnosis - Dizziness and giddiness dr5 Followup: dr5 - With: Emergency Department - When: As needed - Reason: Worsening of condition Followup: dr5 - With: Private Physician - When: 1 - 2 days - Reason: Recheck today's complaints, Continuance of care, Re-evaluation by your physician Followup: dr5 - With: Juan Carlos Orourke MD - When: 1 week - Reason: Recheck today's complaints, Continuance of care, Re-evaluation by your physician Discharge Instructions: - Discharge Summary Sheet dr5 - Blurred Vision, Adult dr5 - Dizziness dr5 Forms: - Medication Reconciliation Form dr5 - Patient Portal Instructions dr5 - Leadership Thank You Letter dr5 Signatures: Dispatcher [employer] EDMS Aleksandra Whyte RN RN ll1 Aníbal Roberson DO DO ms3 Jenn Nevarez RN RN cm10 Ulisses Mckeon, RELIGION INSTRUCTOR-C RELIGION INSTRUCTOR-Cdr5 Corrections: (The following items were deleted from the chart) 10:36 10:36 Head Brain Wo Cont+CT.RAD.BRZ ordered. EDMS EDMS 10:36 10:36 BASIC METABOLIC PANEL+C.LAB.BRZ ordered. EDMS EDMS 10:36 10:36 CBC+H.LAB.BRZ ordered. EDMS EDMS 10:36 10:36 PROBNP+C.LAB.BRZ ordered. EDMS EDMS 10:36 10:36 PROTIME (+INR)+COAG.LAB.BRZ ordered. EDMS EDMS 10:36 10:36 Troponin High Sensitivity+C.LAB.BRZ ordered. EDMS EDMS 10:37 10:37 Chest Single View+RAD.RAD.BRZ ordered. EDMS EDMS 10:50 10:50 Urinalysis+U.LAB.BRZ ordered. EDMS EDMS 11:03 10:58 ED course: Spoke with Dr. Orourke to go over plan of care. Will call patient dr5 back after bloodwork, CT scan, CXR, and urinalysis have returned for definitive plan of care.. dr5
--- NOTE | 2024-11-27 12:24 | ER ---
Nurse's Notes [facility] Name: Berny Mccormick Age: 73 yrs Sex: Male : 1950 Arrival Date: 11/27/2024 Time: 10:19 Bed 2 Private MD: Diagnosis: Dizziness and giddiness Presentation: 11/27 10:24 Chief complaint: Patient states: Had episode of double vision last night, resolved now. ll1 Sent in for further evaluation. Coronavirus screen: Client denies travel out of the [place] in the last 14 days. At this time, the client does not indicate any symptoms associated with coronavirus-19. Ebola Screen: Patient denies travel to an Ebola-affected area in the 21 days before illness onset. 10:24 Method Of Arrival: Wheelchair ll1 10:26 Initial Sepsis Screen: Does the patient meet any 2 criteria? No. Patient's initial ll1 sepsis screen is negative. Does the patient have a suspected source of infection? No. Patient's initial sepsis screen is negative. Risk Assessment: Do you want to hurt yourself or someone else? Patient reports no desire to harm self or others. Onset of symptoms was November 26, 2024. 10:26 Acuity: ARIN 2 ll1 Triage Assessment: 10:26 General: Appears uncomfortable, Behavior is calm, cooperative, appropriate for age. ll1 General: Reports fatigue for. Pain: Denies pain. EENT: Reports double vision episodes. Neuro: Reports weakness. Historical: - Allergies: 10:25 No Known Allergies; ll1 - PMHx: 10:25 Depression; diabetes mellitus; Hyperlipidemia; Hypertension; Thyroid problem; ll1 Alzheimer's disease; - Immunization history:: Adult Immunizations up to date. - Infectious Disease History:: Denies. - Social history:: Smoking status: unknown. Screenin:24 [facility] ED Fall Risk Assessment (Adult) History of falling in the last 3 months, cm10 including since admission No falls in past 3 months (0 pts) Confusion or Disorientation No (0 pts) Intoxicated or Sedated No (0 pts) Impaired Gait No (0 pts) Mobility Assist Device Used No (0 pt) Altered Elimination No (0 pt) Score/Fall Risk Level 0 - 2 = Low Risk Oriented to surroundings, Maintained a safe environment, Hourly rounding (assess needs \T\ fall precautionary measures) done. Abuse screen: Denies threats or abuse. Denies injuries from another. Nutritional screening: No deficits noted. Tuberculosis screening: No symptoms or risk factors identified. Assessment: 11:29 General: Appears in no apparent distress. comfortable, Behavior is calm, cooperative. cm10 Pain: Denies pain. Neuro: No deficits noted. Level of Consciousness is awake, alert, obeys commands, Oriented to person, place, time, situation, Appropriate for age Gait is steady, Reports EPISODE OF DOUBLE VISION. HAS RESOLVED. Respiratory: No deficits noted. Airway is patent Respiratory effort is even, unlabored, Respiratory pattern is regular, symmetrical. Musculoskeletal: Range of motion: intact in all extremities. 12:27 Reassessment: Patient appears in no apparent distress at this time. Patient and/or cm10 family updated on plan of care and expected duration. Pain level reassessed. Patient is alert, oriented x 3, equal unlabored respirations, skin warm/dry/pink. Vital Signs: 10:24 BP 105 / 76; Pulse 92; Resp 18; Pulse Ox 100% on R/A; Weight 92.99 kg; Height 6 ft. 1 ll1 in. ; Pain 0/10; 10:28 BP 105 / 76; ll1 11:24 BP 114 / 79; Pulse 66; Resp 15; Pulse Ox 100% ; cm10 12:00 BP 123 / 85; Pulse 66; Resp 15; Pulse Ox 100% on R/A; cm10 10:24 Body Mass Index 27.05 (92.99 kg, 185.42 cm) ll1 10:24 Pain Scale: Adult ll1 ED Course: 10:21 Patient arrived in ED. im 10:21 Ulisses Mckeon [facility]-C [facility] 10:26 Triage completed. ll1 10:26 Arm band placed on. ll1 10:34 Jenn Nevarez, RN is Primary Nurse. cm10 10:48 XRAY Chest (1 view) In Process Unspecified. EDMS 10:49 CT Head Brain wo Cont In Process Unspecified. EDMS 11:12 Initial lab(s) drawn, by me, sent to lab. EKG done, by ED staff, reviewed by Ulisses TRUONG. Inserted saline lock: 20 gauge in left antecubital area, using aseptic technique. Blood collected. Flushed with 10 mL NS. 11:25 Urine collected: clean catch specimen, clear. kb4 11:31 Patient has correct armband on for positive identification. Placed in gown. Bed in low cm10 position. Call light in reach. Side rails up X2. Provided Education on: ER process and procedures.. Client placed on continuous cardiac and pulse oximetry monitoring. NIBP monitoring applied. conveyor monitor on. 12:23 Juan Carlos Martinez MD is Referral Physician. dr5 12:27 No provider procedures requiring assistance completed. IV discontinued, intact, cm10 bleeding controlled, No redness/swelling at site. Pressure dressing applied. 12:34 Aníbal Roberson DO is Attending Physician. dr5 Administered Medications: No medications were administered Medication: 11:24 VIS not applicable for this client. cm10 Outcome: 12:24 Discharge ordered by MD. dr5 12:27 Discharged to home ambulatory, with significant other, cm10 12:27 Condition: good 12:27 Discharge instructions given to patient, significant other, Instructed on discharge instructions, follow up and referral plans. Demonstrated understanding of instructions, follow-up care, 12:33 Patient left the ED. cm10 12:35 Patient left the ED. dr5 Signatures: Dispatcher [employer] EDMS Aleksandra Whyte RN RN ll1 Porsha Aguilera Clarissa, RN RN cm10 Ulisses Mckeon FNP-C BRIM MOLDER-Cdr5 Dona Ashton kb4 Corrections: (The following items were deleted from the chart) 10:28 10:24 BP 84 / 74; Pulse 92bpm; Resp 18bpm; Pulse Ox 100% RA; ll1 ll1
[2024-11-27 13:23] VITALS: O2SAT 100
[2024-11-27 13:26] VITALS: BP 123/85
--- NOTE | 2024-11-29 12:38 | EKG ---
Test Date: 2024-11-27 Test Time: 10:55:49 Medical Assistant Secretary: ENRIQUETA MEASUREMENT RESULTS: Intervals: Rate: 73 NH: 172 QRSD: 102 QT: 418 QTc: 460 [place]: P: 54 NH: 172 QRS: 37 T: 43 INTERPRETIVE STATEMENTS: Normal sinus rhythm Cannot rule out Anterior infarct, age undetermined Abnormal ECG Compared to ECG 11/16/2022 10:03:10 Myocardial infarct finding now present Electronically Signed On 11-29-24 12:28:15 CDT by Ghulam Francis
== END 2024-11-27 12:35 | disposition home or self-care (01) ==
LOC: ER 10:19
DX: R42 Dizziness and giddiness (principal); H53.2 Diplopia; E11.9 Type 2 diabetes mellitus without complications; I10 Essential (primary) hypertension; G30.9 Alzheimer's disease, unspecified; F02.80 Dementia in other diseases classified elsewhere, unspecified severity, without behavioral disturbance, psychotic disturbance, mood disturbance, and anxiety
CPT/HCPCS: 36415; 70450; 71045; 80048; 81001; 83880; 84484; 85025; 85610; 93005; 99284

== ENCOUNTER 2024-11-30 13:44 | Emergency (ER) | payer OTHER ==
--- NOTE | 2024-11-30 15:02 | RAD REPORT ---
Procedure: Chest Single View HISTORY: Chest pain COMPARISON: November 27, 2024 FINDINGS: The lungs appear clear of acute infiltrate. No significant pleural effusion noted. The heart is normal size. IMPRESSION: No acute abnormality is displayed.
--- NOTE | 2024-11-30 15:02 | RAD REPORT ---
EXAM:Ribs Left CLINICAL HISTORY: Left rib pain FINDINGS: No fracture seen
--- NOTE | 2024-11-30 15:09 | ER ---
Nurse's Notes [facility] Name: Berny Mccormick Age: 73 yrs Sex: Male : 1950 Arrival Date: 11/30/2024 Time: 13:44 Bed DX4 Private MD: Diagnosis: Sprain of ribs Presentation: 11/30 14:03 Chief complaint: Patient states: has been having some balance problems and I use a iw cane, I reached into my dresser yesterday and I turned around and fell, fell onto an arm chair onto left ribs. 14:03 Acuity: ARIN 4 iw 14:04 Coronavirus screen: At this time, the client does not indicate any symptoms associated iw with coronavirus-19. Ebola Screen: No symptoms or risks identified at this time. Initial Sepsis Screen: Does the patient meet any 2 criteria? No. Patient's initial sepsis screen is negative. Does the patient have a suspected source of infection? No. Patient's initial sepsis screen is negative. Risk Assessment: Do you want to hurt yourself or someone else? Patient reports no desire to harm self or others. Onset of symptoms was November 29, 2024. 14:04 Method Of Arrival: Ambulatory iw Historical: - Allergies: 14:04 No Known Allergies; iw - PMHx: 14:04 Alzheimer's disease; Depression; diabetes mellitus; Hyperlipidemia; Hypertension; iw Thyroid problem; - Immunization history:: Adult Immunizations up to date. - Infectious Disease History:: Denies. - Social history:: Smoking status: Patient denies any tobacco usage or history of. Screenin:05 [facility] ED Fall Risk Assessment (Adult) History of falling in the last 3 months, iw including since admission Yes- single mechanical fall (1 pt) Confusion or Disorientation No (0 pts) Intoxicated or Sedated No (0 pts) Impaired Gait Yes (1 pt) Mobility Assist Device Used Yes (1 pt) Altered Elimination No (0 pt) Score/Fall Risk Level 3 or more points = High Risk Oriented to surroundings, Maintained a safe environment. Abuse screen: Denies threats or abuse. Denies injuries from another. Nutritional screening: No deficits noted. Tuberculosis screening: No symptoms or risk factors identified. Assessment: 15:05 General: Appears in no apparent distress. comfortable, Behavior is calm, cooperative. iw Pain: Complains of pain in left lateral anterior chest Pain does not radiate. Pain currently is 5 out of 10 on a pain scale. Quality of pain is described as pressure, sharp. Musculoskeletal: Swelling absent Tenderness present in left lateral anterior chest. Vital Signs: 14:04 BP 140 / 93; Pulse 78; Resp 18; Pulse Ox 100% on R/A; Weight 90.72 kg; Height 6 ft. 1 iw in. ; Pain 8/10; 14:04 Body Mass Index 26.39 (90.72 kg, 185.42 cm) iw 14:04 Pain Scale: Adult iw ED Course: 13:51 Patient arrived in ED. cj3 13:58 Conor Mahoney MD is Attending Physician. ec2 14:03 Triage completed. iw 14:05 Arm band placed on. iw 14:33 CXR XRAY In Process Unspecified. EDMS 14:33 Ribs Left XRAY In Process Unspecified. EDMS 15:05 Patient has correct armband on for positive identification. Adult w/ patient. Provided iw Education on: Fall precautions,pain management. 15:05 No provider procedures requiring assistance completed. Patient did not have IV access iw during this emergency room visit. Administered Medications: 15:25 Drug: Acetaminophen PO 1000 mg PO once Route: PO; iw 16:00 Follow up: Response: No adverse reaction; Medication administered at discharge. iw 15:25 Drug: Ibuprofen PO 800 mg PO once Route: PO; iw 15:45 Follow up: Response: No adverse reaction; Medication administered at discharge. iw 15:25 Drug: Methocarbamol PO 500 mg PO once Route: PO; iw 15:45 Follow up: Response: No adverse reaction; Medication administered at discharge. iw 15:30 Drug: Lidoderm Topical Patch 5 % (700 mg/patch) 1 patches Topical once; leave on for 12 iw hours; cover most painful area; may cut into smaller pieces Route: Topical; Site: affected area; 15:45 Follow up: Response: No adverse reaction; Medication administered at discharge. iw Medication: 15:05 VIS not applicable for this client. iw Outcome: 15:09 Discharge ordered by . ec2 16:01 Discharged to home via wheelchair, iw 16:01 Condition: stable 16:01 Discharge instructions given to patient, family, Instructed on discharge instructions, follow up and referral plans. medication usage, Demonstrated understanding of instructions, follow-up care, medications, Prescriptions given X 1, 16:01 Patient left the ED. iw Signatures: Dispatcher [employer] Rhiannon Almeida RN RN iw Corral, Edwin, MD MD ec2 Camille Correa cj3
--- NOTE | 2024-11-30 15:09 | EDPHYS ---
Physician Documentation [facility] Name: Berny Mccormick Age: 73 yrs Sex: Male : 1950 Arrival Date: 11/30/2024 Time: 13:44 Bed DX4 Private MD: ED Physician Conor Mahoney HPI: 11/30 15:09 This 73 yrs old Male presents to ER via Ambulatory with complaints of Fall ec2 Injury, Left Rib Pain. 15:09 Patient arrives today for evaluation after a fall and injuring his left ribs. No LOC, ec2 no head strike, no head or neck pain.. Historical: - Allergies: 14:04 No Known Allergies; iw - PMHx: 14:04 Alzheimer's disease; Depression; diabetes mellitus; Hyperlipidemia; Hypertension; iw Thyroid problem; - Immunization history:: Adult Immunizations up to date. - Infectious Disease History:: Denies. - Social history:: Smoking status: Patient denies any tobacco usage or history of. ROS: 15:10 Constitutional: as per hpi ec2 Exam: 15:10 Constitutional: GEN: NAD Head: atraumatic Eyes: EOMI Ears: External ears are ec2 normal. CV: regular rate LUNGS: no respiratory distress ABD: non-distended SKIN: no evidence of rashes MSK: Reproducible left lower chest wall TTP. No deformity, no crepitus, no ecchymosis. No C/T/L spine deformities Vital Signs: 14:04 BP 140 / 93; Pulse 78; Resp 18; Pulse Ox 100% on R/A; Weight 90.72 kg; Height 6 ft. 1 iw in. ; Pain 8/10; 14:04 Body Mass Index 26.39 (90.72 kg, 185.42 cm) iw 14:04 Pain Scale: Adult iw MDM: 15:08 Medical Screening Exam initiated ec2 15:11 Data reviewed: vital signs, nurses notes. ED course: Patient arrives today for ec2 evaluation after fall with rib pain. Examination yields reproducible MSK TTP. Chest x-ray and rib series are negative for any bony fracture. Will prescribe Robaxin as needed for pain and discharged home. Directed to follow-up PCP. Return precautions given.. 11/30 14:05 Order name: CXR XRAY; Complete Time: 15:08 ec2 11/30 14:05 Order name: Ribs Left XRAY; Complete Time: 15:08 ec2 Administered Medications: 15:25 Drug: Acetaminophen PO 1000 mg PO once Route: PO; iw 16:00 Follow up: Response: No adverse reaction; Medication administered at discharge. iw 15:25 Drug: Ibuprofen PO 800 mg PO once Route: PO; iw 15:45 Follow up: Response: No adverse reaction; Medication administered at discharge. iw 15:25 Drug: Methocarbamol PO 500 mg PO once Route: PO; iw 15:45 Follow up: Response: No adverse reaction; Medication administered at discharge. iw 15:30 Drug: Lidoderm Topical Patch 5 % (700 mg/patch) 1 patches Topical once; leave on for 12 iw hours; cover most painful area; may cut into smaller pieces Route: Topical; Site: affected area; 15:45 Follow up: Response: No adverse reaction; Medication administered at discharge. iw Disposition Summary: 11/30/24 15:09 Discharge Ordered Notes: Location: Home ec2 Condition: Stable ec2 Diagnosis - Sprain of ribs ec2 Followup: ec2 - With: Private Physician - When: - Reason: Re-evaluation by your physician Discharge Instructions: - Discharge Summary Sheet ec2 - Rib Contusion ec2 Forms: - Medication Reconciliation Form ec2 - Antibiotic Education ec2 - Prescription Opioid Use ec2 - Patient Portal Instructions ec2 - Leadership Thank You Letter ec2 Prescriptions: - methocarbamol 500 mg Oral tablet - take 1 tablet ORAL route 4 times per day; 20 tablet; Refills: 0, Product ec2 Selection Permitted Signatures: Dispatcher [employer] Rhiannon Almeida RN RN Conor Mahoney MD MD ec2
[2024-11-30] MEDS ORDERED: ACETAMINOPHEN 500 MG TAB ONE (15:28)
[2024-11-30] MEDS ORDERED: IBUPROFEN 400 MG TAB ONE (15:28)
[2024-11-30] MEDS ORDERED: methocarbamoL 500 MG TAB ONE (15:28)
[2024-11-30] MEDS ORDERED: LIDOCAINE 4% PATCH ONE (15:28)
[2024-11-30 16:27] VITALS: BP 140/93; O2SAT 100
== END 2024-11-30 16:01 | disposition home or self-care (01) ==
LOC: ER 13:44
DX: S23.41XA Sprain of ribs, initial encounter (principal); W18.30XA Fall on same level, unspecified, initial encounter
CPT/HCPCS: 71045; 71100; 99283; J2003

== ENCOUNTER 2025-06-26 06:25 | Day surgery (SDC) | payer OTHER ==
[2025-06-13 16:32] LABS: Absolute Lymphocytes (CBC) 1.1 K/uL (0.7-4.9); Hematocrit 41.4 % (39.6-49.0); Hemoglobin 13.8 g/dL (13.6-17.9); MCH 30.8 pg (27.0-35.0); MCHC 33.3 g/dL (32.0-36.0); MCV 92.5 fL (80-100); MPV 6.9 fL (7.6-11.3); Nucleated RBC Absolute Count 0.0 (0-0); Nucleated Red Blood Cells % 0.1 % (0-0); RBC Red Blood Cell Count 4.48 M/uL (4.33-5.43); White Blood Count 4.80 thou/uL (4.3-10.9)
[2025-06-13 16:40] LABS: PT Prothrombin Time 12.6 SECONDS (10-13.0); Protime INR 1.12
[2025-06-13 16:48] LABS: Sqamous Epithelial None Seen /HPF (None Seen); Urine Culture Reflex Order NOT NEEDED; Urine Microscopic Reflex YN ORDER UMIC; Urine Yeast (Budding) Trace /HPF (None Seen)
[2025-06-13 16:49] LABS: Anion Gap 4.6 mEq/L (5.0-15.0); BUN Blood Urea Nitrogen 15.0 mg/dL (7-18); Glucose Level 86.0 mg/dL (74-106); Potassium 4.6 mEq/L (3.5-5.1)
[2025-06-26] MEDS: Ringers Lactate 1,000 ML IV ONE (07:00)
[2025-06-26] MEDS ORDERED: LIDOCAINE 1% MPF 5 ML VIAL ONE (07:22)
[2025-06-26] MEDS ORDERED: FENTANYL CITR 100 MCG/2 ML ONE (07:22)
[2025-06-26] MEDS: CEFAZOLIN SODIUM 2 GM/VIAL ONE (07:54)
[2025-06-26] MEDS ORDERED: NS 0.9% VIAL 10 ML ONE (07:57)
[2025-06-26] MEDS ORDERED: EPHEDRINE SULF 50 MG/ML VIAL ONE (08:02)
[2025-06-26] MEDS ORDERED: ONDANSETRON 4 MG/2 ML VIAL ONE (08:10)
[2025-06-26 08:33] VITALS: O2SAT 100
[2025-06-26] MEDS ORDERED: PHENAZOPYRIDINE 100MG TAB PO ONE (08:54)
[2025-06-26] MEDS ORDERED: CODEINE 30MG/APAP 300MG TAB PO PRN (08:54)
[2025-06-26 09:01] VITALS: TEMP 97.5
[2025-06-26] MEDS: MINERAL OIL ENEMA 135 ML BTL PR ONE (10:00)
[2025-06-26] MEDS: FLEET ENEMA ADULT PR PRN (11:00)
[2025-06-26 12:14] VITALS: BP 138/75
--- NOTE | 2025-06-26 18:27 | P.OP ---
Date of Service: 06/26/25 Preoperative diagnoses: BPH with LUTS History of UroLift Severe constipation Postoperative diagnoses: BPH with LUTS History of UroLift Severe constipation Principal procedures: Prostatic urethral lift -4 UL2 implants placed Indication for procedure: 74-year-old gentleman presented to the urology clinic with obstructive LUTS. He underwent prior UroLift with significant improvement in his LUTS, but those began to decline within the following months. Subsequent evaluation revealed a degree of residual obstruction, and he was counseled on the option for further management potentially via the UroLift. In the interim, he was seen by feed miller, Dr. Bernard, who identified he had a large fecal mass within his rectum, and he presented on the day of surgery having not had a bowel movement within the last 2 to 3 days. As a result, I counseled him that he could have some neuropathic dysfunction affecting his voiding as well as his ability to stool, and he has LUTS may only in part, be due to obstruction from the prostate. Procedure note: The patient was consented in the preoperative holding area before being transfe rred to the operative suite where general anesthesia was induced. He was given Ancef 2 g IV antimicrobial prophylaxis, and pneumoboots were provided for DVT prophylaxis. He was placed in the lithotomy position, padded and secured to the table appropriately. His genitalia was prepped with Hibiclens and he was draped in standard fashion. The case was begun using a 20 [place] UroLift sheath and a visual obturator to traverse the urethra and navigate through the prostatic urethra ultimately entering the bladder. There, I decompressed the bladder fluid and urine and then surveyed the prostatic fossa. While the prior UroLift implants were in good position and largely creating an open channel within the apical mid gland, at the bladder neck, there was still a degree of obstruction. As I was able to generate some lift if implants were placed closer to the bladder neck opening, I then switched the visual obturator for the first UroLift delivery device and implant. I targeted the patient's left bladder neck high anteriorly at around the 1 o'clock position, and about 1 cm distal to the bladder neck opening, I angled the scope about 15 degrees against the tissue and elevated the tissue before pulling the trigger once delivering the needle through the substance of the prostate. I then compressed the tissue further and pulled the trigger a second time deploying the capsular tab and partially retracting the needle. A third pull of the trigger did tension the suture and completely retract the needle. I then advanced the scope back toward the midline and 2 to 3 mm toward the bladder neck opening until the white line of the monofilament was just visible in the delivery bay, but such that the tip of the scope where the urethral end piece would be deployed would remain within the prostatic urethra and not exposed intraluminally within the bladder. At this point, I pulled the trigger a fourth time deploying the urethral end piece which did beautifully elevate and lateralize the bladder neck on the patient's left side. I then advanced the scope back into the bladder and switched the delivery device for the second implant. This was targeted on the contralateral side again at the 11 o'clock position about 1.5 cm distal to the bladder neck opening. Once this implant was successfully placed, while it did elevate the tissue, there was still a degree of overhang that was more proximal toward the bladder neck. After surveying the channel with a visual obturator, I then elected to utilize a third implant, this time even more superior and proximal toward the bladder neck opening, and this time was able to create the beautiful lift and opening at the bladder neck that I desired. As result, I surveyed the channel created, and there was only a degree of intraluminal intrusion coming from the patient's left mid zone of the prostate between the apical implants and the ones at the base. As a result, I placed a fourth and final implant into that tissue lateralizing it and creating a beautiful continuous anterior channel visible with the bladder completely decompressed from the verumontanum all the way into the bladder. No residual obstruction was visible. There was minimal hematuria; and given the patient's preop constipation, I did place an 18 [place] urethral Rees catheter into his bladder with ease and I placed 15 cc of sterile water in the balloon. The catheter was connected to a leg bag and he was taken out of the lithotomy position. He was then awakened from general anesthesia before being transferred to a stretcher. He was then transferred to the recovery room in good condition. Complications: None Discharge disposition: In the recovery area, we will monitor his urine per routine, but I have asked the nurses to give him alternating Fleet Phospho-Soda with mineral oil enemas in order to break up the massive stool in his colon and encourage a bowel movement. He will continue at home taking MiraLAX twice daily to try to manage his pre- existing constipation. We will plan a voiding trial either tomorrow in the office if he does not wish to remove the catheter at home at 7 AM sharp. Subsequent follow-up should be established with me per routine in about 1 month.
== END 2025-06-26 12:55 | disposition home or self-care (01) ==
LOC: OR 06:25
PROVIDERS: ATTEND Urology
PROC: 0T7D8DZ Dilation of Urethra with Intraluminal Device, Via Natural or Artificial Opening Endoscopic (ICD-10-PCS; principal; 2025-06-26 07:30)
DX: N40.1 Benign prostatic hyperplasia with lower urinary tract symptoms (principal); K59.00 Constipation, unspecified; N13.8 Other obstructive and reflux uropathy
CPT/HCPCS: 85025; 81001; 80048; 36415; 85610; 52441; 52442 ×3; A4216; J2704; J2003; J3010; J2405; J7120